=== PATIENT | male | born 1995 | race Caucasian/White ===

== ENCOUNTER 2021-11-07 12:33 | Emergency (ER) | payer MEDICAID, SELFPAY ==
[2021-11-07 12:46] VITALS: BP 136/79; PULSE 78; RESP 18; TEMP 36.8; O2SAT 93; BMI 42.7
--- NOTE | 2021-11-07 12:57 | XRR_ITS ---
PROCEDURE INFORMATION: Exam: XR Chest Exam date and time: 11/07/2021 12:57 PM Age: 26 years old Clinical indication: Cough TECHNIQUE: Imaging protocol: XR of the chest. Views: 1 view. COMPARISON: CR Chest 2 views* [id number] 09/26/2016 9:46 PM FINDINGS: Lungs: Unremarkable. No consolidation. Pleural spaces: Unremarkable. No pleural effusion. No pneumothorax. Heart/Mediastinum: Unremarkable. No cardiomegaly. Bones/joints: Unremarkable. XR/XR chest 1V portable [id number] IMPRESSION: No acute findings.
--- NOTE | 2021-11-07 12:57 | ECG_ITS ---
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
--- NOTE | 2021-11-07 13:18 | W.ED.URI ---
HPI - URI/Sore Throat General: Chief Complaint: General Medical Stated Complaint: COUGH, H/A, FAINTED THIS A.M. Time Seen by Provider: 11/07/21 13:07 Source: patient Mode of arrival: ambulatory Limitations: no limitations History of Present Illness: HPI Narrative: Patient is a 26-year-old male who presents to ED today with a main complaint of a cough over the past 3 to 4 days. He states cough is mainly nonproductive. He is not having any chest pain or shortness of breath. When asked he does report some nasal congestion and sinus pain. He has had diarrhea. No complaints of abdominal pain or vomiting. He reports earlier today he was coughing so hard that he passed out for a few seconds. No injuries related to the syncopal episode. Apart from this isolated incident he has no complaints of lightheadedness, dizziness, palpitations. Denies sick contacts. No fevers. Unvaccinated for COVID. MD elicited complaint: cough and nasal congestion Onset (ago): day(s) Consistency: constant Severity: moderate Able to tolerate fluids by mouth: Yes Exacerbating factors: nothing Relieving factors: nothing Associated symptoms: Reports diarrhea, nasal congestion and sinus pain; Deny abdominal pain, chills, chest pain, ear or mastoid pain, fever(s), headache(s), nausea or vomiting Treatments prior to arrival: none Review of Systems Const: Denies: fever(s), chills, body aches, fatigue or malaise Eyes: Denies: change in vision ENMT: Reports: nasal congestion and sinus pain; Denies: throat pain, odynophagia, ear or mastoid pain or nasal discharge Card: Reports: syncope (x 1 today); Denies: chest pain, palpitations, irregular heart rhythm, edema, swelling of feet/ankles, lightheadedness, pre-syncope, dyspnea on exertion, orthopnea or leg pain with exertion Resp: Reports: non-productive cough and chest congestion; Denies: hemoptysis GI: Reports: diarrhea; Denies: abdominal pain, nausea or vomiting Musc: Denies: neck pain, back pain, extremity pain or joint pain Skin/Breast: Denies: rash Neuro: Denies: headache(s), numbness in extremities, weakness in extremities, sensory changes, difficulty walking, dizziness, behavioral changes, Slurred speech present, difficulty communicating thoughts or seizure-like activity Physical Exam Const: COMMON NORMALS: no acute distress, patient oriented x3, no limitations and alert GENERAL APPEARANCE: cooperative NUTRITIONAL APPEARANCE: obese morbidly obese ORIENTATION/CONSCIOUSNESS: Yes awake, Yes oriented to person, Yes oriented to place and Yes oriented to time HENMT: COMMON NORMALS: normocephalic and atraumatic HEAD & SCALP: normocephalic and atraumatic Neck/C-Spine: CAROTIDS: No bruit Chest: COMMONS NORMALS: normal inspection of the chest and normal palpation of entire chest wall Resp: COMMON NORMALS: normal respiratory effort EFFORT & INSPECTION: Yes able to speak in complete sentences AUSCULTATION: wheezes (faint expiratory wheezes R upper lung field) Cardio: COMMON NORMALS: regular rate and regular rhythm RATE: regular rate RHYTHM: regular rhythm Extremity: COMMON NORMALS: no clubbing, cyanosis or edema, no calf tenderness and no pedal edema Neuro: COMMON NORMALS: patient oriented x3 SENSORIUM/ORIENTATION: Yes alert, Yes oriented to person, Yes oriented to place and Yes oriented to time Skin: COMMON NORMALS: no rashes or lesions noted GENERAL SKIN EXAM: no rashes or lesions noted Course Vital Signs: Vital signs: Vital Signs Temperature 98.2 F 11/07/21 12:46 Pulse Rate 78 11/07/21 12:46 Respiratory Rate 18 11/07/21 12:46 Blood Pressure 136/79 11/07/21 12:46 Pulse Oximetry 93 11/07/21 12:46 MDM - URI/Sore Throat MDM Narrative: Medical decision making narrative: Patient is a 26-year-old morbidly obese male here for complaints of a cough. He does complain of nasal congestion and sinus pain as well as diarrhea. He reported a syncopal episode following coughing. EKG is normal. CXR is normal. His vital signs are stable. He clinically appears in no acute distress. PCR COVID pending. Discussed quarantine precautions if this returns positive as well as return to ED precautions given for worsening symptoms. Otherwise I recommend follow-up with primary care in 3 to 5 days for reevaluation. Will place patient on albuterol inhaler and steroids at this time. There is no indication for antibiotics. Imaging Data^: CXR: Radiologist's impression: [address] [address] XRay Report Signed Patient: Janes Powell Unit #: [id number] : 1995 Age/Sex: 26 / M ADM Date: 11/07/21 Loc: ER Room/Bed: Attending Dr: Ordering Provider/Ordering MD: Donna Morales MD Date of Service: 11/07/21 Procedure(s): XR chest 1V portable [id number] Accession Number(s): [id number] Report Number: [id number] PROCEDURE INFORMATION: Exam: XR Chest Exam date and time: 11/07/2021 12:57 PM Age: 26 years old Clinical indication: Cough TECHNIQUE: Imaging protocol: XR of the chest. Views: 1 view. COMPARISON: CR Chest 2 views* [id number] 09/26/2016 9:46 PM FINDINGS: Lungs: Unremarkable. No consolidation. Pleural spaces: Unremarkable. No pleural effusion. No pneumothorax. Heart/Mediastinum: Unremarkable. No cardiomegaly. Bones/joints: Unremarkable. XR/XR chest 1V portable [id number] IMPRESSION: No acute findings. Dictated By: Roby Weinberg Signed By: Roby Weinberg Signed Date/Time: 11/07/21 1516 DD/ 1257 EKG Data^: EKG 1: EKG interpretation date: 11/07/21 EKG interpretation time: 13:39 Interpretation: Sinus rhythm Rate [address] elevation or depression changes noted Discharge Plan Discharge Patient Disposition: Home Clinical Impression: Viral upper respiratory tract infection with cough Condition: Stable Prescriptions: New albuterol sulfate 90 mcg/actuation HFA aerosol inhaler 2 inh INHALATION Q4H PRN (Reason: shortness of breath or wheezing) Qty: 6.7 RF: 0 dexamethasone 6 mg tablet 6 mg PO DAILY Qty: 6 RF: 0 Discharge Orders: Discharge ED (Routine); Ordered 11/07/21 Ordered By: Kaylan Young Referrals: Jacob Rowe MD [Primary Care Provider] - Patient Instructions: Upper Respiratory Infection (ED) Coding Level of Care Code ED Corporate Communications Specialist for Chg Fwd Exam Comprehensive
[2021-11-08 14:59] LABS: Coronavirus Test Green County Not Detected
== END 2021-11-07 14:50 | disposition home or self-care (01) ==
PROVIDERS: Emergency Provider Physician Assistant; PCP Family Medicine
DX: J06.9 Acute upper respiratory infection, unspecified (principal); Z20.822 Contact with and (suspected) exposure to COVID-19
CPT/HCPCS: 71045; 87635; 93005; 99283

== ENCOUNTER 2022-06-09 21:21 | Emergency (ER) | payer MEDICAID, SELFPAY ==
[2022-06-09 21:53] VITALS: BP 128/87; PULSE 93; RESP 17; TEMP 36.6; O2SAT 95; BMI 40.4
--- NOTE | 2022-06-10 02:48 | W.ED.GENADLT ---
HPI - General Adult General: Chief complaint: General Medical Stated complaint: SORE THROAT Time Seen by Provider: 06/10/22 02:21 History of Present Illness: 26-year-old male patient comes in today with bilateral tonsil swelling and exudate. Patient reports pain and discomfort. Patient also reports occasional fever. Patient appears mildly unwell but not toxic. Patient appears in mild pain. Review of Systems Const: Reports: fever(s) ENMT: Reports: throat pain Physical Exam Const: COMMON NORMALS: alert HENMT: THROAT: abnormal tonsil bilateral erythema and exudates Lymph: LYMPHATIC: lymphadenopathy Resp: COMMON NORMALS: normal respiratory effort and clear to auscultation bilaterally AUSCULTATION: clear to auscultation bilaterally Cardio: COMMON NORMALS: regular rate RATE: regular rate Extremity: COMMON NORMALS: normal to inspection Neuro: SENSORIUM/ORIENTATION: Yes alert Skin: COMMON NORMALS: no rashes or lesions noted GENERAL SKIN EXAM: no rashes or lesions noted Course Vital Signs: Vital signs: Vital Signs Temperature 97.9 F 06/09/22 21:53 Pulse Rate 93 06/09/22 21:53 Respiratory Rate 17 06/09/22 21:53 Blood Pressure 128/87 06/09/22 21:53 Pulse Oximetry 95 06/09/22 21:53 MDM - General Adult Medical Decision Making 26-year-old male patient comes in with sore throat and enlarged tonsils. On exam we note enlargement of bilateral tonsils with the right being worse than the left. Patient also has some significant exudate to bilateral tonsils. Vital signs are normal. Differential diagnosis includes strep pharyngitis, tonsillar abscess, viral syndrome. Patient is managing secretions well and airway is intact. No sign of any serious illness is noted at this time. We will go ahead and treat patient for exudative tonsillitis with concern for a mild tonsillar abscess with 10 mg of dexamethasone p.o. and clindamycin 450 mg 3 times a day. Reviewed this with patient who reported understanding agreed to plan. Discharge Plan Discharge Patient Disposition: Home Clinical Impression: Tonsillitis with exudate Condition: Stable Prescriptions: New clindamycin HCl 150 mg capsule 450 mg PO Q8H 7 Days Qty: 63 0RF No Action albuterol sulfate 90 mcg/actuation HFA aerosol inhaler 2 inh INHALATION Q4H PRN (Reason: shortness of breath or wheezing) Qty: 6.7 0RF dexamethasone 6 mg tablet 6 mg PO DAILY Qty: 6 0RF Discharge Orders: Discharge ED (Routine); Ordered 06/10/22 Ordered By: Hilario Cesar Referrals: Jacob Rowe MD [Primary Care Provider] - Discharge Diet: Usual diet Discharge Activity: Increase activity as tolerated Patient Instructions: Pharyngitis (ED) Activity Restrictions/Additional Instructions: Drink plenty of water. Use acetaminophen and ibuprofen for pain and discomfort. Take antibiotics clindamycin 450 mg, this will be 3 capsules of 150 mg clindamycin, 3 times a day for 7 days. Follow-up with primary care in 1 week. Return to ER for new concerns. Coding Level of Care Code ED [facility] Bailiff for Luzma Allan
[2022-06-10 02:51] LABS: Rapid Strep A Test Negative (Negative)
[2022-06-10] MEDS: clindamycin 150 mg Capsule 450 MG PO (02:56)
[2022-06-10] MEDS: dexamethasone 4 mg Tablet 10 MG PO (02:56)
== END 2022-06-10 03:02 | disposition home or self-care (01) ==
PROVIDERS: Emergency Provider Nurse Practitioner Family; PCP Family Medicine
DX: J03.90 Acute tonsillitis, unspecified (principal)
CPT/HCPCS: 87081; 87880; 99283; J8540

== ENCOUNTER 2022-08-12 18:59 | Emergency (ER) | payer MEDICAID, SELFPAY ==
[2022-08-12 19:05] VITALS: BP 135/78; PULSE 87; RESP 18; TEMP 37.1; O2SAT 98
--- NOTE | 2022-08-12 19:08 | XRR_ITS ---
PROCEDURE INFORMATION: Exam: XR Chest Exam date and time: 08/12/2022 7:22 PM Age: 27 years old Clinical indication: Chest wall pain; Additional info: Cp TECHNIQUE: Imaging protocol: Radiologic exam of the chest. Views: 1 view. COMPARISON: CR XR chest 1V portable [id number] 11/07/2021 1:59 PM FINDINGS: Lungs: Unremarkable. No consolidation. Pleural spaces: Unremarkable. No pleural effusion. No pneumothorax. Heart/Mediastinum: Unremarkable. No cardiomegaly. Bones/joints: Unremarkable. XR/XR chest 1V portable [id number] IMPRESSION: No acute findings.
--- NOTE | 2022-08-12 19:09 | ED_ITS ---
HPI - Chest Pain General: Chief Complaint: Chest Pain Stated Complaint: CHEST PAIN Time Seen by Provider: 08/12/22 19:02 Source: patient and EMS Mode of arrival: EMS Limitations: no limitations History of Present Illness: 27-year-old male who states that he has been having chest pain over the last 2 days he states been dull ache in the center of his chest. Denies any shortness of breath denies any cough denies any vomiting and denies any history of heart disease he denies any worsening proving factors states has been constantly dull. Associated symptoms: Deny abdominal pain, dyspnea, fever(s), nausea or vomiting Review of Systems Const: Denies: fever(s), chills, body aches or change in appetite Eyes: Denies: blurry vision or eye discomfort ENMT: Denies: throat pain or dental pain Card: Reports: chest pain Resp: Denies: dyspnea GI: Denies: abdominal pain, nausea, vomiting or diarrhea : Denies: dysuria Musc: Denies: neck pain or back pain Skin/Breast: Denies: rash Neuro: Denies: headache(s) Psych: Denies: depression Brett/Lymph: Denies: easy bruising All/Imm: Denies: urticaria PFSH ED PFSH: Medical History (Updated 08/12/22 @ 20:07 by Donna Morales MD) No pertinent past medical history Social History (Updated 08/12/22 @ 19:10 by Donna Morales MD) Smoking and tobacco status: current every day smoker Course Vital Signs: Vital signs: Vital Signs Temperature 98.7 F 08/12/22 19:05 Pulse Rate 87 08/12/22 19:05 Respiratory Rate 20 H 08/12/22 19:34 Blood Pressure 135/78 08/12/22 19:05 Pulse Oximetry 98 08/12/22 19:05 Oxygen Delivery Me thod 08/12/22 19:05 MDM - Chest Pain Medical Decision Making Patient presents for chest pains atypical in nature likely muscular he does have some tenderness his troponin EKG and x-ray are normal and his pain is been constant for 2 days he is stable for discharge he is to follow-up with PCP and return if worsening. Lab Data : 08/12/22 19:35 08/12/22 19:35 Radiology Impressions Chest X-Ray 08/12/22 19:08 IMPRESSION: No acute findings. Laboratory Results WBC 12.3 10^3/uL (4.0-10.0) H 08/12/22 19:35 RBC 5.55 10^6/uL (4.1-5.3) H 08/12/22 19:35 Hgb 14.8 g/dL (11.7-16.6) 08/12/22 19:35 Hct 47.1 % (42.0-52.0) 08/12/22 19:35 MCV 84.9 fl (80-94) 08/12/22 19:35 MCH 26.7 pg (28.0-34.0) L 08/12/22 19:35 MCHC 31.4 g/dL (30.0-36.0) 08/12/22 19:35 RDW 14.8 % (12.1-15.1) 08/12/22 19:35 Plt Count 390 10^3/cmm (130-400) 08/12/22 19:35 MPV 10.3 fL (7.4-10.4) 08/12/22 19:35 Neut % (Auto) 61.6 % 08/12/22 19:35 Lymph % (Auto) 30.7 % 08/12/22 19:35 [place] % (Auto) 5.9 % 08/12/22 19:35 Eos % (Auto) 1.3 % 08/12/22 19:35 Baso % (Auto) 0.3 % 08/12/22 19:35 Neut # (Auto) 7.59 10^3/uL (1.8-7.7) 08/12/22 19:35 Lymph # (Auto) 3.8 10^3/uL (0.8-4.8) 08/12/22 19:35 [place] # (Auto) 0.7 10^3/uL (0.2-0.9) 08/12/22 19:35 Eos # (Auto) 0.2 10^3/uL (0.0-0.8) 08/12/22 19:35 Baso # (Auto) 0.0 10^3/uL (0.0-0.1) 08/12/22 19:35 Nucleated RBC % (auto) 0 % 08/12/22 19:35 Nucleated RBCs # 0.0 /100WBC 08/12/22 19:35 Sodium 135 mmol/L (136-145) L 08/12/22 19:35 Potassium 4.0 mmol/L (3.5-5.1) 08/12/22 19:35 Chloride 99 mmol/L (98-107) 08/12/22 19:35 Carbon Dioxide 27 mmol/L (22-29) 08/12/22 19:35 Anion Gap 13.0 (5-19) 08/12/22 19:35 BUN 10 mg/dL (6-20) 08/12/22 19:35 Creatinine 0.8 mg/dL (0.7-1.2) 08/12/22 19:35 GFR Calculation 115.1 mL/min (90-130) 08/12/22 19:35 Glucose 103 mg/dL (65-115) 08/12/22 19:35 Calculated Osmolality 279 mOsm/kg (285-295) L 08/12/22 19:35 Calcium 9.5 mg/dL (8.5-10.5) 08/12/22 19:35 Total Bilirubin 0.2 mg/dL (0.15-1.2) 08/12/22 19:35 AST 12 U/L (0-40) 08/12/22 19:35 ALT 10 U/L (0-41) 08/12/22 19:35 Alkaline Phosphatase 108 U/L (40-130) 08/12/22 19:35 Troponin T Baseline 6 ng/L (0-15) 08/12/22 19:35 Total Protein 7.7 g/dL (6.6-8.7) 08/12/22 19:35 Albumin 3.8 g/dL (3.5-5.2) 08/12/22 19:35 Globulin 3.9 g/dL (1.3-4.6) 08/12/22 19:35 Lipase 36 U/L (13-60) 08/12/22 19:35 EKG Data EKG 1: I personally reviewed and interpreted this EKG as follows: EKG interpretation date: 08/12/22 EKG interpretation time: : Interpretation: nsr hr [address] or t wave abnormalities qrs 94 qtc 388 Discharge Plan Discharge Patient Disposition: Home Clinical Impression: Chest pain Qualifiers: Chest pain type: unspecified Qualified Code(s): R07.9 - Chest pain, unspecified Prescriptions: No Action albuterol sulfate 90 mcg/actuation HFA aerosol inhaler 2 inh INHALATION Q4H PRN (Reason: shortness of breath or wheezing) Qty: 6.7 0RF dexamethasone 6 mg tablet 6 mg PO DAILY Qty: 6 0RF Discharge Orders: Discharge ED (Routine); Ordered 08/12/22 Ordered By: Donna Morales Referrals: Jacob Rowe MD [Primary Care Provider] - Discharge Diet: Advance as tolerated Discharge Activity: Resume usual activity Patient Instructions: Chest Pain (ED) Coding Level of Care Code ED Clerical Office for Luzma Allan
--- NOTE | 2022-08-12 19:22 | ECG_ITS ---
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 Measurements Intervals [place] Rate: 87 P: -2 AL: 174 QRS: -11 QRSD: 94 T: 3 QT: 344 QTc: 414 Interpretive Statements SINUS RHYTHM Compared to ECG 11/07/2021 13:39:23 No significant changes Electronically Signed On 08-13-2022 11:07:42 CDT by Sharri Juan M.D. [id number]
[2022-08-12 19:34] VITALS: RESP 20
[2022-08-12] MEDS: HYDROmorphone 1 mg/mL INJ 1 mL IVP (19:34)
[2022-08-12] MEDS: ondansetron 2 mg/ML SDV 2 mL 4 MG IVP (19:37)
[2022-08-12 19:43] LABS: Basophils % 0.3 %; Eosinophils # 0.2 10^3/uL (0.0-0.8); Eosinophils % 1.3 %; Hematocrit 47.1 % (42.0-52.0); Hemoglobin 14.8 g/dL (11.7-16.6); Lymphocytes # 3.8 10^3/uL (0.8-4.8); Lymphocytes % 30.7 %; Mean Corpuscular HGB Conc 31.4 g/dL (30.0-36.0); Mean Corpuscular Hemoglobin 26.7 pg (28.0-34.0); Mean Corpuscular Volume 84.9 fl (80-94); Mean Platelet Volume 10.3 fL (7.4-10.4); Monocytes # 0.7 10^3/uL (0.2-0.9); Monocytes % 5.9 %; Neutrophils # 7.59 10^3/uL (1.8-7.7); Neutrophils % 61.6 %; Nucleated Red Blood Cells % 0 %; Platelet Count 390 10^3/cmm (130-400); Red Blood Count 5.55 10^6/uL (4.1-5.3); Red Cell Distribution Width 14.8 % (12.1-15.1); White Blood Count 12.3 10^3/uL (4.0-10.0)
[2022-08-12 20:04] LABS: Alanine Aminotransferase 10 U/L (0-41); Albumin Level 3.8 g/dL (3.5-5.2); Alkaline Phosphatase 108 U/L (40-130); Aspartate Amino Transferase 12 U/L (0-40); Blood Urea Nitrogen 10 mg/dL (6-20); Calcium 9.5 mg/dL (8.5-10.5); Carbon Dioxide 27 mmol/L (22-29); Chloride 99 mmol/L (98-107); Globulin 3.9 g/dL (1.3-4.6); Glomerular Filtration Rate 115.1 mL/min (90-130); Glucose 103 mg/dL (65-115); Lipase 36 U/L (13-60); Osmolality Calculated 279 mOsm/kg (285-295); Sodium 135 mmol/L (136-145); Total Bilirubin 0.2 mg/dL (0.15-1.2); Total Protein 7.7 g/dL (6.6-8.7)
[2022-08-12 20:06] LABS: Troponin(5th) Baseline 6 ng/L (0-15)
[2022-08-12 20:20] VITALS: BP 109/71; PULSE 87; RESP 14; O2SAT 95
== END 2022-08-12 20:15 | disposition home or self-care (01) ==
PROVIDERS: Emergency Provider Emergency Medicine; PCP Family Medicine
DX: R07.9 Chest pain, unspecified (principal); F17.200 Nicotine dependence, unspecified, uncomplicated
CPT/HCPCS: 71045; 80053; 83690; 84484; 85025; 93005; 96374; 96375; 99285; J1170; J2405

== ENCOUNTER 2022-08-14 00:28 | Emergency (ER) | payer MEDICAID, SELFPAY ==
[2022-08-14 00:29] VITALS: BP 136/80; PULSE 80; RESP 18; TEMP 36.6; O2SAT 96
--- NOTE | 2022-08-14 00:31 | ED.C_ITS ---
HPI - Psych General: Chief Complaint: Psychiatric Symptoms Stated Complaint: DEPRESSION Time Seen by Provider: 08/14/22 00:29 Source: patient and EMS Mode of arrival: EMS Limitations: no limitations History of Present Illness: 27-year-old male states that he has chronic depression he states he supposed to get an Invega injection weekly states its been a month since he has had it he states that he did call EMS tonight because he needs his Invega he is having some increased depression. He denies any suicidal or homicidal ideations he states he has no plan or thoughts of killing himself. Denies any worsening improving factors. Associated symptoms: Reports depression Review of Systems Const: Denies: fever(s), chills, body aches or change in appetite Eyes: Denies: blurry vision or eye discomfort ENMT: Denies: throat pain or dental pain Card: Denies: chest pain Resp: Denies: dyspnea GI: Denies: abdominal pain, nausea, vomiting or diarrhea : Denies: dysuria Musc: Denies: neck pain or back pain Skin/Breast: Denies: rash Neuro: Denies: headache(s) Psych: Reports: depression Brett/Lymph: Denies: easy bruising All/Imm: Denies: urticaria PFSH ED PFSH: Medical History No pertinent past medical history Social History Smoking and tobacco status: current every day smoker Physical Exam Const: COMMON NORMALS: no acute distress, patient oriented x3 and healthy appearing HENMT: COMMON NORMALS: normocephalic and atraumatic HEAD & SCALP: normocephalic and atraumatic Eye: COMMON NORMALS: Equal, round and reactive pupils present and EOMs intact bilaterally PUPIL: Yes Equal, round and reactive pupils present Neck/C-Spine: COMMON NORMALS: full ROM and supple Chest: COMMONS NORMALS: normal inspection of the chest and normal palpation of entire chest wall Resp: COMMON NORMALS: normal respiratory effort, No retractions, No use of accessory muscles and clear to auscultation bilaterally AUSCULTATION: clear to auscultation bilaterally Cardio: COMMON NORMALS: regular rate, regular rhythm and No murmurs present (Cardio) RATE: regular rate RHYTHM: regular rhythm GI: COMMON NORMALS: Normal to inspection, nondistended, normoactive bowel sounds present, Soft to palpation, non-tender and no masses PALPATION: Yes Soft to palpation Extremity: COMMON NORMALS: normal to inspection and full ROM Neuro: COMMON NORMALS: patient oriented x3, moves all extremities and no focal motor deficits Psych: COMMON NORMALS: mental status grossly normal, Normal thought process present and cooperative THOUGHT PROCESS: Normal thought process present Skin: COMMON NORMALS: no rashes or lesions noted and no wounds GENERAL SKIN EXAM: no rashes or lesions noted Course Vital Signs: Vital signs: Vital Signs Temperature 97.8 F 08/14/22 00:29 Pulse Rate 80 08/14/22 00:29 Respiratory Rate 18 08/14/22 00:29 Blood Pressure 136/80 08/14/22 00:29 Pulse Oximetry 96 08/14/22 00:29 [facility] - Psych Medical Decision Making Patient presents here with depression he is not suicidal homicidal he has not had his Invega in over a month. Informed him I was not able to give him an Invega here he states that he would take a Geodon and will get his Invega outpatient he is not suicidal I did offer him admission to the psych herr again and he refused he stable for discharge at this time return if worsening.. Discharge Plan Discharge Patient Disposition: Home Clinical Impression: Depression Condition: Stable Prescriptions: No Action albuterol sulfate 90 mcg/actuation HFA aerosol inhaler 2 inh INHALATION Q4H PRN (Reason: shortness of breath or wheezing) Qty: 6.7 0RF dexamethasone 6 mg tablet 6 mg PO DAILY Qty: 6 0RF Discharge Orders: Discharge ED (Routine); Ordered 08/14/22 Ordered By: Donna Morales Referrals: Jacob Rowe MD [Primary Care Provider] - 1-3 days Discharge Diet: Advance as tolerated Discharge Activity: Resume usual activity Patient Instructions: Depression (ED) Coding Level of Care Code ED Extracorporeal Technician for Rhondag Fwd Exam Comprehensive
--- NOTE | 2022-08-14 00:34 | PC.NURSE ---
During triage pt. states that he has not had his invega this month. Pt. states the reason for the lack of medication is not seeing his doctor for new prescription.
[2022-08-14] MEDS: ziprasidone hcl 40 mg Capsule PO (01:09)
--- NOTE | 2022-09-03 02:16 | W.ED.PSYCHS ---
HPI - Psych General: Chief Complaint: Psychiatric Symptoms Stated Complaint: DEPRESSION Time Seen by Provider: 08/14/22 00:29 Source: patient and EMS Mode of arrival: EMS History of Present Illness: . PFSH ED PFSH: Medical History No pertinent past medical history Social History Smoking and tobacco status: current every day smoker Physical Exam Const: COMMON NORMALS: no acute distress, patient oriented x3 and healthy appearing HENMT: COMMON NORMALS: normocephalic and atraumatic HEAD & SCALP: normocephalic and atraumatic Eye: COMMON NORMALS: Equal, round and reactive pupils present and EOMs intact bilaterally PUPIL: Yes Equal, round and reactive pupils present Neck/C-Spine: COMMON NORMALS: full ROM and supple Chest: COMMONS NORMALS: normal inspection of the chest and normal palpation of entire chest wall Resp: COMMON NORMALS: normal respiratory effort, No retractions, No use of accessory muscles and clear to auscultation bilaterally AUSCULTATION: clear to auscultation bilaterally Cardio: COMMON NORMALS: regular rate, regular rhythm and No murmurs present (Cardio) RATE: regular rate RHYTHM: regular rhythm GI: COMMON NORMALS: Normal to inspection, nondistended, normoactive bowel sounds present, Soft to palpation, non-tender and no masses PALPATION: Yes Soft to palpation Extremity: COMMON NORMALS: normal to inspection and full ROM Neuro: COMMON NORMALS: patient oriented x3, moves all extremities and no focal motor deficits Psych: COMMON NORMALS: mental status grossly normal, Normal thought process present and cooperative THOUGHT PROCESS: Normal thought process present Skin: COMMON NORMALS: no rashes or lesions noted and no wounds GENERAL SKIN EXAM: no rashes or lesions noted Course Vital Signs: Vital signs: Vital Signs Temperature 97.8 F 08/14/22 00:29 Pulse Rate 80 08/14/22 00:29 Respiratory Rate 18 08/14/22 00:29 Blood Pressure 136/80 08/14/22 00:29 Pulse Oximetry 96 08/14/22 00:29 MDM - Psych Medical Decision Making addendum to note on 08/12 including physical exam that was omitted Discharge Plan Discharge Patient Disposition: Home Clinical Impression: Chest pain Condition: Stable Prescriptions: No Action albuterol sulfate 90 mcg/actuation HFA aerosol inhaler 2 inh INHALATION Q4H PRN (Reason: shortness of breath or wheezing) Qty: 6.7 0RF dexamethasone 6 mg tablet 6 mg PO DAILY Qty: 6 0RF Discharge Orders: Discharge ED (Routine); Ordered 08/14/22 Ordered By: Donna Morales Referrals: Jacob Rowe MD [Primary Care Provider] - 1-3 days Discharge Diet: Advance as tolerated Discharge Activity: Resume usual activity Coding Level of Care Code ED Pilot Control Operator for Luzma Allan
== END 2022-08-14 01:27 | disposition home or self-care (01) ==
LOC: ER 00:52
PROVIDERS: Emergency Provider Emergency Medicine; PCP Family Medicine
DX: F32.A Depression, unspecified (principal); F17.200 Nicotine dependence, unspecified, uncomplicated
CPT/HCPCS: 99283

== ENCOUNTER 2022-10-23 17:04 | Emergency (ER) | payer MEDICAID, SELFPAY ==
[2022-10-23 17:28] VITALS: BP 129/84; PULSE 88; RESP 16; TEMP 37; O2SAT 98
--- NOTE | 2022-10-23 17:56 | W.ED.WOUNDLC ---
HPI - Wound/Laceration General: Chief Complaint: Wound/Laceration Stated Complaint: LEFT HAND 5TH DIGIT LAC Time Seen by Provider: 10/23/22 17:56 History of Present Illness: 27-year-old male patient comes in today for injury to the left hand middle finger. Patient was working on his computer when he cut it against a sharp piece of metal. Patient reports that his immunizations are up-to-date. Patient has a superficial laceration to the distal dorsal little finger on the left hand. It is approximately 1-1/2 cm. Associated symptoms: Denies fever(s) Review of Systems Const: Denies: fever(s) Card: Denies: chest pain Resp: Denies: dyspnea Skin/Breast: Reports: new lesions [facility] ED PFSH: Medical History No pertinent past medical history Social History Smoking and tobacco status: current every day smoker Physical Exam Const: COMMON NORMALS: alert HENMT: COMMON NORMALS: atraumatic HEAD & SCALP: atraumatic Neck/C-Spine: COMMON NORMALS: full ROM Resp: COMMON NORMALS: normal respiratory effort Cardio: COMMON NORMALS: regular rate RATE: regular rate Extremity: LEFT UPPER EXTREMITY: Yes hand & digits (1-1/2 cm laceration to the dorsal little finger) Left hand and digits: Yes inspection, Yes palpation and Yes ROM Neuro: SENSORIUM/ORIENTATION: Yes alert Skin: TRAUMA: laceration (1-1/2 cm dorsal little finger left hand) flap Procedures Laceration Laceration 1: Site: hand Side (If applicable): left Size (cm): 1.5 Description: flap Depth: simple, single layer Local Anesthetic: lidocaine 1% and with epi Amount of anesthesia used (mL): 1 Pre-repair: wound explored and irrigated extensively Skin layer closed with: nylon Size (cm): 5-0 Number of sutures: 2 Technique: simple, interrupted and horizontal mattress Course Vital Signs: Vital signs: Vital Signs Temperature 98.6 F 10/23/22 17:28 Pulse Rate 88 10/23/22 17:28 Respiratory Rate 16 10/23/22 17:28 Blood Pressure 129/84 10/23/22 17:28 Pulse Oximetry 98 10/23/22 17:28 MDM - Wound/Laceration Medical Decision Making Patient comes in today for injury to the left little finger. On exam there is a superficial laceration to the dorsal aspect of the distal left little finger that is approximate 1 and half centimeter. Laceration appears to be a flap. No tendon injury is noted. Differential diagnosis includes foreign body, laceration, fracture. No sign of fracture or tendon injury is noted. Wound was repaired with 2 stitches. Patient tolerated well. Wound was placed in a clean dry dressing with a aluminum digital splint. Patient was recommended to follow-up with primary care in 1 week. Return to ER for new concerns. Patient stated understanding and agreed to plan. Tetanus shot was up-to-date. Discharge Plan Discharge Patient Disposition: Home Clinical Impression: Finger laceration Qualifiers: Encounter type: initial encounter Finger: little finger Damage to nail status: without damage Foreign body presence: without foreign body Laterality: left Qualified Code(s): S61.217A - Laceration without foreign body of left little finger without damage to nail, initial encounter Condition: Stable Prescriptions: No Action albuterol sulfate 90 mcg/actuation HFA aerosol inhaler 2 inh INHALATION Q4H PRN (Reason: shortness of breath or wheezing) Qty: 6.7 0RF dexamethasone 6 mg tablet 6 mg PO DAILY Qty: 6 0RF Discharge Orders: Discharge ED (Routine); Ordered 10/23/22 Ordered By: Hilario Cesar Referrals: Jacob Rowe MD [Primary Care Provider] - Discharge Diet: Usual diet Discharge Activity: Increase activity as tolerated Patient Instructions: Finger Laceration (ED) Activity Restrictions/Additional Instructions: Keep wound clean and dry. It is important keep the wound as dry as possible for the next 48 hours. After that you can gently wash the wound with mild soap and water and cover with a Band-Aid. Make sure wound is thoroughly dried before covering. Follow-up with primary care in 1 week for recheck. Sutures out in 7 days. Change dressing daily. Wear finger splint for protection of wound. Coding Level of Care Code ED Senior Mobile Solutions Architect for Luzma Allan
[2022-10-23 18:49] VITALS: PULSE 90; RESP 16; O2SAT 95
--- NOTE | 2022-10-23 18:49 | PC.NURSE ---
PROVIDER BILL PLACED BANDAGE ON PT AND APPLIED FINGER SPLINT.
== END 2022-10-23 18:50 | disposition home or self-care (01) ==
PROVIDERS: Emergency Provider Nurse Practitioner Family; PCP Family Medicine
DX: S61.217A Laceration without foreign body of left little finger without damage to nail, initial encounter (principal); W26.8XXA Contact with other sharp object(s), not elsewhere classified, initial encounter
CPT/HCPCS: 12001; 99283

== ENCOUNTER 2022-12-13 16:26 | Emergency (ER) | payer MEDICAID, SELFPAY ==
[2022-12-13 16:31] VITALS: PULSE 81; RESP 19; TEMP 36.7; O2SAT 98; BMI 38.5
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
[2022-12-13] MEDS: hyDROXYzine 25 mg Capsule 50 MG PO (17:01)
[2022-12-13 17:02] VITALS: RESP 18; O2SAT 97
== END 2022-12-13 17:04 | disposition home or self-care (01) ==
PROVIDERS: Emergency Provider Physician Assistant; PCP Family Medicine
DX: F41.9 Anxiety disorder, unspecified (principal); Z59.00 Homelessness unspecified; F17.210 Nicotine dependence, cigarettes, uncomplicated
CPT/HCPCS: 99283

== ENCOUNTER 2023-01-04 15:35 | Emergency (ER) | payer MEDICAID, SELFPAY ==
--- NOTE | 2023-01-04 15:37 | ED_ITS ---
HPI - Anxiety General: Chief Complaint: Anxiety Stated Complaint: anxiety Time Seen by Provider: 01/04/23 15:36 History of Present Illness: Mr Powell is a 27-year-old gentleman with history of psychiatric disorder presenting to the emergency department for anxiety and panic attack. He reports consuming approximately 600 mg of caffeine since about noon and developed palpitations and anxious feeling. He reports that he felt tired and that is why he drank them. He previously tolerated more without difficulty however weighed more at that time. Intensity symptoms is moderate. Course has continued. Denies suicidal or homicidal ideation. Denies other ingestion. No other specific changes in health, exacerbating, or alleviating factors identified. Onset (ago): hour(s) Symptoms: palpitations, extremity numbness/tingling and other Severity: moderate Place: home History of similar episodes: Yes Provoking factors: other Relieving factors: nothing Exacerbating factors: nothing Review of Systems General: Reports: 10 or more systems reviewed and unremarkable except in HPI and below PFSH ED PFSH: Medical History No pertinent family history No pertinent past medical history Social History Smoking and tobacco status: current every day smoker Physical Exam Const: COMMON NORMALS: alert GENERAL APPEARANCE: cooperative and well developed HENMT: COMMON NORMALS: normocephalic and atraumatic HEAD & SCALP: normocephalic and atraumatic THROAT: posterior oropharynx normal Eye: COMMON NORMALS: conjunctivae normal CONJUNCTIVA: Yes conjunctivae normal SCLERA: sclerae normal Neck/C-Spine: COMMON NORMALS: supple GENERAL: Yes trachea midline Resp: COMMON NORMALS: clear to auscultation bilaterally EFFORT & INSPECTION: Yes able to speak in complete sentences AUSCULTATION: clear to auscultation bilaterally Cardio: COMMON NORMALS: regular rate and regular rhythm RATE: regular rate RHYTHM: regular rhythm GI: COMMON NORMALS: Soft to palpation PALPATION: Yes Soft to palpation and No Tenderness to palpation present (GI) Extremity: GENERAL: Yes normal exam except as noted and No edema Neuro: COMMON NORMALS: moves all extremities SENSORIUM/ORIENTATION: Yes alert and No Orientation impaired Psych: COMMON NORMALS: mental status grossly normal and Normal thought process present THOUGHT PROCESS: Normal thought process present Course Vital Signs: Vital signs: Vital Signs Pulse Rate 95 01/04/23 15:42 Respiratory Rate 18 01/04/23 15:42 Blood Pressure 141/89 01/04/23 15:42 Pulse Oximetry 95 01/04/23 15:42 Oxygen Delivery Me thod 01/04/23 15:42 MDM - Anxiety Medical Decision Making 27-year-old gentleman presenting due to anxiety context of significant caffeine intake. Exam as above. EKG notable for sinus rhythm with nonspecific ST segment allergies, normal axis. No STEMI. Chest x-ray with no lobar consolidation pneumothorax Patient improved with hydroxyzine. Most likely etiology of symptoms is Exacerbated underlying anxiety disorder. Given clinical exam, history, and improvement I do not feel that further ED evaluation is required I will prescribe hydroxyzine. I encouraged the patient to follow-up with psychiatric department reinitiate his medications. The results of ED evaluation were discussed with the patient including prescriptions and/or symptomatic cares (if applicable) including appropriate and responsible use, followup plan, and return precautions. The patient verbalized understanding and felt safe for discharge. Medical Records I reviewed the patient's medical records. Lab Data I reviewed the patient's lab results. Radiology Impressions Chest X-Ray 01/04/23 16:03 IMPRESSION: No acute findings. Discharge Plan Discharge Patient Disposition: Home Clinical Impression: Acute anxiety, Adverse effect of caffeine, initial encounter Condition: Stable Prescriptions: New hydroxyzine HCl 25 mg tablet 25 mg PO Q8H PRN (Reason: anxiety) Qty: 60 0RF Discharge Orders: Discharge ED (Routine); Ordered 01/04/23 Ordered By: Rasta Bowman Referrals: Jacob Rowe MD [Primary Care Provider] - Discharge Diet: Usual diet Discharge Activity: Increase activity as tolerated Patient Instructions: Anxiety (ED), Caffeine Overdose Activity Restrictions/Additional Instructions: Thank you for visiting the emergency department. You were seen and evaluated for anxiety. The exact cause your symptoms is unclear though may be secondary to underlying anxiety disorder or caffeine adverse effect. Please limit caffeine intake. Please follow-up with a primary care provider. Return to the emergency department for uncontrolled symptoms or anything else that you are concerned about and feel needs emergency department evaluation. [facility] [phone] If you or someone you care for is experiencing a psychiatric emergency, please call the crisis hotline ([facility]) 24-hours a day, 7 days a week at [phone]. There is a walk-in crisis stabilization unit on the [address] side of the hospital campus open from 11 AM to 9 PM daily. Coding Level of Care Code ED Brick Extruder Operator for Luzma Allan
[2023-01-04 15:42] VITALS: BP 141/89; PULSE 95; RESP 18; O2SAT 95; BMI 47.5
--- NOTE | 2023-01-04 16:03 | XRR_ITS ---
PROCEDURE INFORMATION: Exam: XR Chest Exam date and time: 01/04/2023 4:14 PM Age: 27 years old Clinical indication: Other: Palpatations TECHNIQUE: Imaging protocol: Radiologic exam of the chest. Views: 1 view. COMPARISON: CR XR chest 1V portable [id number] 08/12/2022 7:22 PM FINDINGS: Lungs: Unremarkable. No consolidation. Pleural spaces: Unremarkable. No pleural effusion. No pneumothorax. Heart/Mediastinum: Unremarkable. No cardiomegaly. Bones/joints: Unremarkable. XR/XR chest 1V portable [id number] IMPRESSION: No acute findings.
--- NOTE | 2023-01-04 16:03 | ECG_ITS ---
[facility] Test Date: 2023-01-04 Pat Name: Janes Powell Department: Room: Gender: Male Information Technology Manager: : 1995 Requested By: Rasta Bowman Order Number: [id number] Virgil MD: Sharri Juan M.D. Measurements Intervals [place] Rate: 87 P: 52 UT: 198 QRS: 14 QRSD: 106 T: 24 QT: 363 QTc: 439 Interpretive Statements SINUS RHYTHM Compared to ECG 08/12/2022 19:22:36 No significant changes Electronically Signed On 01-04-2023 21:02:02 REAL ESTATE AGENT/BROKER by Sharri Juan M.D. [email or web address]
[2023-01-04] MEDS: hyDROXYzine 25 mg Capsule PO (16:16)
--- NOTE | 2023-01-04 16:20 | PC.PHAR ---
pt states take no rx or otc medications-pt states no longer uses inhalers-states not taken meds in around a year
== END 2023-01-04 17:28 | disposition home or self-care (01) ==
PROVIDERS: Emergency Provider Emergency Medicine; PCP Family Medicine
DX: F41.9 Anxiety disorder, unspecified (principal); T43.615A Adverse effect of caffeine, initial encounter
CPT/HCPCS: 71045; 93005; 99284

== ENCOUNTER 2023-06-07 01:33 | Emergency (ER) | payer MEDICAID, SELFPAY | END 2023-06-07 01:41 | disposition left against medical advice (07) | LOC: ER 02:01 | PROVIDERS: Emergency Provider Family Medicine; PCP Family Medicine | DX: Z53.21 Procedure and treatment not carried out due to patient leaving prior to being seen by health care provider (principal) | CPT/HCPCS: 99283 ==

== ENCOUNTER 2023-12-22 14:03 | Emergency (ER) | payer MEDICAID, SELFPAY ==
[2023-12-22 14:04] VITALS: BP 116/67; PULSE 76; RESP 18; TEMP 36.8; O2SAT 96; BMI 38.5
--- NOTE | 2023-12-22 14:07 | W.ED.PSYCHS ---
HPI - Psych General: Chief Complaint: Psychiatric Symptoms Stated Complaint: psych eval Time Seen by Provider: 12/22/23 14:07 History of Present Illness: 28-year-old male presents to the emergency department after drinking 1/5 of alcohol today. He states he has been at home with his mother who is also drinking and he has been arguing with her. He presents via EMS after some people that he was communicating with online called EMS. He states that he has no intent of self-harm or harming anyone else. He states he is not taking any medications and has not taken any medications to harm himself. He does appear to be very cooperative and is not causing any difficulties. Review of Systems General: Reports: 10 or more systems reviewed and unremarkable except in HPI and below Psych: Reports: other (alcohol ingestion) [facility] ED PFSH: Medical History No pertinent family history No pertinent past medical history Social History Smoking and tobacco/nicotine status: current every day tobacco/nicotine user Physical Exam Narrative: EXAM NARRATIVE: Constitutional: the patient appears well nourished and of normal development. Vital signs as documented. No acute distress at present. Alert and oriented-to person, place, time and situation. Head, eyes, ears, nose, mouth, throat: Normocephalic, atraumatic. Pupils-equal, round, reactive to light. No scleral icterus. Normal-appearing external ears. Normal appearing nasal turbinates, no drainage. No obvious oral lesions, posterior oropharynx without erythema or exudates. Neck: Supple, trachea is midline, no lymphadenopathy, no jugular venous distension, thyromegaly, or carotid bruits. Carotid upstrokes are brisk bilaterally. Lungs: clear to auscultation to all lung storm. Symmetrical rise and fall of chest, no obvious signs of increased work of breathing at present. Cardiac: Regular rate and rhythm, positive S1, S2. No murmurs, rubs or gallops that I can appreciate Abdomen: Soft, non-tender to palpation, normal active bowel sounds to all quadrants. No palpable masses, no organomegaly and abdominal bruits. Extremities: 2+ pulses in the upper extremities that are equal bilaterally, 2+ pulses in the lower extremities that are equal bilaterally. Non-edematous. Moves all extremities well, sensation to all extremities are noted. Skin: Warm, dry, intact. Course Vital Signs: Vital signs: Vital Signs Temperature 98.2 F 12/22/23 14:04 Pulse Rate 76 12/22/23 14:04 Respiratory Rate 18 12/22/23 14:04 Blood Pressure 116/67 12/22/23 14:04 Pulse Oximetry 96 12/22/23 14:04 Oxygen Delivery Me thod Room Air 12/22/23 14:04 MDM - Psych Medical Decision Making Physical exam completed and documented I did contact Dr. Roth the psychiatrist to discuss the patient's presentation there is no alternate explanation for the patient presenting to the emergency department he has been extremely cooperative and states he is not wanting to harm himself or anyone else and that he has not ingested any medications or anything that could cause him harm. He states that he would gladly call the crisis center if needed and feels that he does not need it right now he states that he only came to the emergency department because the ambulance crew told him he needed to be evaluated. At this time given the discussion and lack of physical exam findings here in the emergency department I do not feel that there is any lethality at present and the patient has agreed to a safety contract that if he has any feelings of anger or self-harm that he would call the crisis center. He states and agrees to not drink any further alcohol today also. Medical Records I reviewed the patient's medical records. No radiology studies performed this visit Discharge Plan Discharge Patient Disposition: Home Clinical Impression: Alcohol ingestion Condition: Stable Prescriptions: No Action No Known Home Medications Discharge Orders: Discharge ED (Routine); Ordered 12/22/23 Ordered By: Bernard Cazares Referrals: Jacob Rowe MD [Primary Care Provider] - Discharge Diet: Advance as tolerated Discharge Activity: Resume usual activity Patient Instructions: Opioid Safety, Pain Management Activity Restrictions/Additional Instructions: Activity Restrictions/Additional Instructions: Thank you [facility] for your healthcare needs today. Please realize that you were seen in the Emergency Department and that we are providing you with an emergency medical screening exam and this may not be a complete and all inclusive of all the testing and or medical work-up that you may need to determine your ailment or severity of your illness. It is very important that you follow-up as instructed with your Primary care provider or Specialist for additional evaluation and to discuss your medical treatment plan. You may return to the Emergency Department should you have concerns or if your condition changes or worsens in any way. Coding Level of Care Code ED Scrap Baller for Luzma Allan
--- NOTE | 2023-12-22 14:17 | PC.PHAR ---
pt states takes no prescription or otc medications-pt states hasnt taken meds for 4 years-states his medicaid from [place] isnt accepted here-
[2023-12-22 14:48] LABS: Add Urine Microscopic? NO; Charge for UA Resulting for Rev
[2023-12-22 14:52] LABS: Bilirubin Urine Neg (Negative); Blood Urine Neg (Negative); Glucose Urine UA Norm (Normal); Ketones Urine Negative (Negative); Leukocyte Esterase Urine Negative (Negative); Nitrate Urine Negative (Negative); Protein Urine Neg (Negative); Urine Appearance Clear (CLEAR); Urine Color Yellow (Yellow); Urobilinogen Urine Norm (Negative); pH Urine 5 (5-7)
[2023-12-22 15:01] LABS: Amphetamines Screen Urine Negative (Negative); Barbiturates Screen Urine Negative (Negative); Benzodiazepines Screen Urine Negative (Negative); Cocaine Screen Urine Negative (Negative); Opiate Screen Urine Negative (Negative); PCP Screen Urine Negative (Negative); THC Screen Urine Negative (Negative)
== END 2023-12-22 15:02 | disposition home or self-care (01) ==
PROVIDERS: Emergency Provider Internal Medicine; PCP Family Medicine
DX: F10.129 Alcohol abuse with intoxication, unspecified (principal); Z72.0 Tobacco use
CPT/HCPCS: 80306; 81003; 99283

== ENCOUNTER 2024-02-11 23:32 | Emergency (ER) | payer MEDICAID, SELFPAY ==
[2024-02-11 23:34] VITALS: BP 114/70; PULSE 91; RESP 16; TEMP 36.9; O2SAT 92; BMI 44.9
--- NOTE | 2024-02-11 23:42 | ED.C_ITS ---
HPI - Psych General: Chief Complaint: Psychiatric Symptoms Stated Complaint: MHE Time Seen by Provider: 02/11/24 23:41 History of Present Illness: 28-year-old male patient comes in today for out of medication. Patient is recently moved back to to [place] from [place] and is awaiting to reestablish his Medicaid. Patient reports some increased anxiety and symptoms of his schizophrenia. Patient is looking for a dose of his paliperidone injection in order to time over until he can reestablish care. Patient denies suicidality. Patient denies homicidal intent. Patient is cooperative. Patient denies hallucinations. Review of Systems General: Reports: 10 or more systems reviewed and unremarkable except in HPI and below PFSH ED PFSH: Medical History No pertinent family history No pertinent past medical history Social History Smoking and tobacco/nicotine status: current every day tobacco/nicotine user Physical Exam Const: COMMON NORMALS: alert HENMT: COMMON NORMALS: normocephalic HEAD & SCALP: normocephalic Neck/C-Spine: COMMON NORMALS: full ROM Resp: COMMON NORMALS: normal respiratory effort and clear to auscultation bilaterally AUSCULTATION: clear to auscultation bilaterally Cardio: COMMON NORMALS: regular rate RATE: regular rate Back/Pelvis: COMMON NORMALS: thoracic and lumbar spine normal to inspection Extremity: COMMON NORMALS: normal to inspection Neuro: SENSORIUM/ORIENTATION: Yes alert Psych: COMMON NORMALS: Normal thought process present, cooperative and speech normal APPEARANCE: Yes bizarre ATTITUDE: Yes calm ACTIVITY/MOTOR BEHAVIOR: Yes appropriate eye contact SPEECH: Yes normal speech MOOD & AFFECT: Yes euthymic mood THOUGHT PROCESS: Normal thought process present THOUGHT CONTENT: Yes Normal thought content present INSIGHT: Good insight present (Psych) JUDGEMENT: Good judgement present (Psych) Skin: COMMON NORMALS: turgor normal GENERAL SKIN EXAM: turgor normal Course Vital Signs: Vital signs: Vital Signs Temperature 98.4 F 02/11/24 23:34 Pulse Rate 91 02/11/24 23:34 Respiratory Rate 16 02/11/24 23:34 Blood Pressure 114/70 02/11/24 23:34 Pulse Oximetry 92 02/11/24 23:34 Oxygen Delivery Me thod Room Air 02/11/24 23:34 MDM - Psych Medical Decision Making Patient came in tonight wanting to get an injection of paliperidone for his chronic schizophrenia. Patient denies any suicidal homicidal thoughts. Patient denies any hallucinations. Patient is cooperative and acting appropriate. Differential diagnosis includes not limited to acute psychosis, chronic schizophrenia, major depressive disorder, suicidal ideation. I attempted to get patient his Invega injection. We did not have the availability of the medication at this time. I recommend patient return tomorrow when the medication may be given. I did offer medication for anxiety and other atypical antipsychotics to help with his symptoms. Patient reports that he was feeling better just sitting here at this time and wanted to wait until he can get his injection. I placed a case management request to help with [facility] follow-up. Patient reports understanding of plan and agrees. No radiology studies performed this visit Discharge Plan Discharge Patient Disposition: Home Clinical Impression: Chronic schizophrenia, Has run out of medications Condition: Stable Prescriptions: No Action No Known Home Medications Discharge Orders: Discharge ED (Routine); Ordered 02/12/24 Ordered By: Hilario Cesar Referrals: Jacob Rowe MD [Primary Care Provider] - Discharge Diet: Usual diet Discharge Activity: Increase activity as tolerated Patient Instructions: Schizophrenia (ED) Activity Restrictions/Additional Instructions: Follow-up tomorrow for Invega injection. Return to ER as needed for worsening symptoms. Coding Level of Care Code ED Combiner Operator for Luzma Allan
[2024-02-12 00:27] VITALS: BP 141/90; PULSE 88; RESP 16; O2SAT 92
[2024-02-12 01:02] VITALS: BP 141/80
--- NOTE | 2024-02-12 07:17 | DCPLANNER ---
Message sent to [facility] urgent follow up Follow-up tomorrow for Invega injection. Return to ER as needed for worsening symptoms.
== END 2024-02-12 01:03 | disposition home or self-care (01) ==
PROVIDERS: Emergency Provider Nurse Practitioner Family; PCP Family Medicine
DX: Z76.0 Encounter for issue of repeat prescription (principal); F20.9 Schizophrenia, unspecified; Z72.0 Tobacco use
CPT/HCPCS: 99281

== ENCOUNTER 2024-04-13 13:45 | Emergency (ER) | payer MEDICAID, SELFPAY ==
[2024-04-13 13:46] VITALS: BMI 44.0
--- NOTE | 2024-04-13 13:55 | W.ED.GENADLT ---
Documented by User: TRISH Sterling 04/13/24 13:59 HPI - General Adult General: Chief complaint: General Medical Stated complaint: ALLERGIC REACTION Time Seen by Provider: 04/13/24 13:54 Source: patient Mode of arrival: EMS Limitations: no limitations History of Present Illness: Patient is a 28-year-old male presents to the emergency department complaining of allergic reaction. He believes it is to his Cap[place], though he began taking it at the beginning of the month he states that he is slowly had worsening bilateral arm burning sensation. He denies any throat swelling or respiratory compromise. He has been taking hydroxyzine to combat this, which has been helping overall. He does think that his reaction is related due to the amount of dogs in his home, and he does arrive to the emergency department covered in dog care. While in the middle of examination, he request to leave AMA as he states he just wanted my blood pressure checked. MD complaint: Allergic reaction Onset (ago): week(s) Associated symptoms: Deny chest pain, dyspnea, headache(s), nausea, rash, palpitations or vomiting Review of Systems General: Reports: 10 or more systems reviewed and unremarkable except in HPI and below Const: Denies: fever(s), chills or fatigue Eyes: Denies: change in vision ENMT: Denies: throat pain, ear or mastoid pain or nasal discharge Card: Denies: chest pain, palpitations, swelling of feet/ankles or lightheadedness Resp: Denies: dyspnea, productive cough or wheezing GI: Denies: abdominal pain, nausea, vomiting, diarrhea or constipation : Denies: flank pain, difficulty urinating, dysuria or urinary frequency Musc: Denies: neck pain, back pain or joint pain Skin/Breast: Denies: rash Neuro: Reports: sensory changes (Arm burning bilaterally); Denies: headache(s), numbness in extremities or weakness in extremities PFSH ED PFSH: Medical History No pertinent family history No pertinent past medical history Social History Smoking and tobacco/nicotine status: current every day tobacco/nicotine user Physical Exam Const: COMMON NORMALS: no acute distress, patient oriented x3 and no limitations GENERAL APPEARANCE: cooperative, comfortable and disheveled (Foul odor and covered in dog hair) NUTRITIONAL APPEARANCE: obese ORIENTATION/CONSCIOUSNESS: Yes awake, Yes oriented to person, Yes oriented to place and Yes oriented to time HENMT: COMMON NORMALS: normocephalic, atraumatic and hearing grossly normal bilaterally HEAD & SCALP: normocephalic and atraumatic MOUTH: Normal oral and palatal mucosa present, lip normal and tongue normal THROAT: posterior oropharynx normal Eye: COMMON NORMALS: Equal, round and reactive pupils present, EOMs intact bilaterally and conjunctivae normal CONJUNCTIVA: Yes conjunctivae normal PUPIL: Yes Equal, round and reactive pupils present Neck/C-Spine: COMMON NORMALS: full ROM, supple and no JVD Resp: COMMON NORMALS: normal respiratory effort, No retractions, No use of accessory muscles and clear to auscultation bilaterally AUSCULTATION: clear to auscultation bilaterally Cardio: COMMON NORMALS: no JVD, regular rate, regular rhythm, No clicks present (Cardio), No murmurs present (Cardio) and No rub (Cardio) RATE: regular rate RHYTHM: regular rhythm GI: COMMON NORMALS: Normal to inspection, nondistended, normoactive bowel sounds present, Soft to palpation and non-tender AUSCULTATION: Yes normoactive bowel sounds PALPATION: Yes Soft to palpation RECTAL EXAM: Yes deferred Neuro: COMMON NORMALS: patient oriented x3, moves all extremities, no focal motor deficits and no sensory deficits noted SENSORIUM/ORIENTATION: Yes oriented to person, Yes oriented to place and Yes oriented to time Psych: COMMON NORMALS: mental status grossly normal and Normal thought process present THOUGHT PROCESS: Normal thought process present Skin: COMMON NORMALS: no rashes or lesions noted GENERAL SKIN EXAM: no rashes or lesions noted [facility] - General Adult Medical Decision Making Patient leaves AGAINST MEDICAL ADVICE before I have a chance to fully examine him. No radiology studies performed this visit Discharge Plan Discharge Patient Disposition: Left Against Medical Advice Clinical Impression: Left against medical advice Condition: Stable Prescriptions: No Action No Known Home Medications Coding Level of Care Code ED Foot Specialist for Chg Fwd Documented by User: Paresh Blanchard DO 04/22/24 06:55 HPI - General Adult General: Chief complaint: General Medical Stated complaint: ALLERGIC REACTION Time Seen by Provider: 04/13/24 13:54 PFS ED PFSH: Medical History No pertinent family history No pertinent past medical history Social History Smoking and tobacco/nicotine status: current every day tobacco/nicotine user MDM - General Adult Medical Decision Making Patient leaves AGAINST MEDICAL ADVICE before I have a chance to fully examine him. Chart reviewed Discharge Plan Discharge Patient Disposition: Left Against Medical Advice Clinical Impression: Left against medical advice Condition: Stable Prescriptions: No Action No Known Home Medications Coding Level of Care Code ED Foot Specialist for Luzma Allan
--- NOTE | 2024-04-13 13:57 | PC.NURSE ---
PT notified provider tho wang he did not actually want to be seen here today he only wanted his blood pressure checked. he stated he wanted to sign out AMA and declined any medical tx
== END 2024-04-13 14:02 | disposition left against medical advice (07) ==
PROVIDERS: Emergency Provider Physician Assistant
DX: T78.40XA Allergy, unspecified, initial encounter (principal); Z72.0 Tobacco use; X58.XXXA Exposure to other specified factors, initial encounter; Z53.29 Procedure and treatment not carried out because of patient's decision for other reasons
CPT/HCPCS: 99281

== ENCOUNTER 2025-08-02 21:23 | Emergency (ER) | payer MEDICARE, MEDICAID, SELFPAY ==
--- OUTSIDE RECORDS SUMMARY | 2017-06-09 07:15 | XMS_ITS | Continuity of Care Document ---
Author Organization [facility] Address [address] [id number] [place] [address] Phone Care Team Providers Care Legal Support Manager Name Role Phone Unavailable Unavailable Unavailable Allergies, Adverse Reactions, Alerts Substance Reaction Status Criticality No Known Allergies Active No Inform ation Medications Medication Instructions Dosage Effective Dates (start - stop) Status Comments naltrexone 50 mg tablet take 1 tablet by oral route every day 50 MG - Active hydroxyzine HCl 25 mg tablet take 1 tablet by oral route 4 times every day 25 MG - Active chlorpromazine 200 mg tablet take 1 tablet by oral route 3 times every day 200 MG - Active trazodone 100 mg tablet take 1 by Oral r oute every for 1 day 1 - Active Doc-Q-Lace 100 mg capsule take 1 capsule by oral route every day at bedtime as needed - Active meloxicam 15 mg tablet take 1 tablet by oral route every day 15 MG - Active divalproex ER 500 mg tablet,extended release 24 hr take 1 tablet by oral route every day 500 MG - Active Depakote 500 mg tablet,delayed release take 1 tablet by oral route 2 times every day 500 MG - Active Invega Sustenna 234 mg/1.5 mL intramuscular syringe inject 1.5 milliliter by intramuscular route every month 234 MG - Active promethazine 6.25 mg/5 mL syrup take 20 milliliter by oral route every day at bedtime as needed 25 MG - Active Triple Antibiotic 3.5 mg-400 unit-5,000 unit topical spray - Active ibuprofen 600 mg tablet take 1 tablet by oral route 3 times every day with food 600 MG - Active Aloe Burn Relief 0.5 % topical spray - Active Procedures Procedure Date Limited Oral Evaluation Problem Focused Limited Oral Evaluation Problem Focused EDR Approval Note Comprehensive Oral Evaluatio n New Or Established Bitewings Four Films Panoramic Film Intraoral Periapical First Film Intraoral Periapical Each Additional Film Intraoral Periapical Each Additional Film Intraoral Periapical Each Additional Film EDR Approval Note Advance Directives Directive Yes / No Effective Date File Name No Information Encounters Encounter Description Practice Location Reason(s) For Visit Diagnoses Date Provider Providers Copied on Encounter [facility], [id number] [place], [place], [id number], [place] tel:[phone] [facility] Encounter for dental exam and cleaning w/o abnormal findings No Information [facility], [id number], [id number], tel:[phone] [facility] Encounter for dental exam and cleaning w/o abnormal findings In[facility] Musa. [address] [place], [address], [place]. tel:[phone] Referring Provider: Lencho Conte, [address] [place], [address]. tel:[phone] Family History Family Member Type Diagnosis Age At Onset No Information Payers Payer name Insurance type Covered republican ID Mila george(s) D Medicaid [id number] Social History Type Description Quantity Date Captured Comments Alcohol Use Details No Caffeine Use Details Unknown Tobacco Use Status Smoking Status No Information Sex Male Chief Complaint And Reason For Visit No Information Reason For Referral Reason For Referral No Information History Of Present Illness Encounter Date Complaint History Of Prese nt Illness No Information Functional Status Date Functional Assessmen t No Information Instructions Date Instruction Additional Infor mation No Information Assessments Type Assessment Date No Information Patient Care Teams Name Effective Dates (start - stop) Status Members No Information
--- OUTSIDE RECORDS SUMMARY | 2025-08-02 21:29 | XMS_ITS | Clinical Summary ---
Author Organization [employer] [facility] Address [address] Attn: Epic Prelude ADT [place] [id number] Care Team Providers Care Hand Upper And Bottom Lacer Name Role Phone Unavailable Primary Care Provider Unavailabl e Allergies No known active allergies Medications No known medications Immunizations Immunization Administration Dates Next Due (ADACEL/BOOSTRIX)(10 YR UP) TDAP VACCINE, 0.5ML, IM 04/07/2010 Social History Tobacco Use Types Packs/Day Years Used Date Smoking Tobacco: Never Assessed Transportation Needs Answer Date Record ed In the past 12 months, has l ack of transportation kept you from medical appointments or from getting medications? Yes 12/22 In the past 12 months, has l ack of transportation kept you from meetings, work, or from getting things needed for daily living? Yes 01/11/2023 Sex and Gender Information Value Date Recorded Sex Assigned at Not on file Legal Sex Male 7:12 AM [employer] INST[employer] Gender Identity Not on file Sexual Orientation Not on file Last Filed Vital Signs Vital Sign Reading Time Taken Comments Blood Pressure 117/75 01/11/2023 3:30 PM [employer] INST[employer] Pulse 67 01/11/2023 3:30 PM [employer] IN[employer] Temperature 36.3 C (97.4 F) 01/11/2023 1:43 PM [employer] INST[employer] Respiratory Rate 18 01/11/2023 3:30 PM [employer] INST[employer] Oxygen Saturation 95% 01/11/2023 3:30 PM [employer] INST[employer] Inhaled Oxygen Concentration - - Weight 167.8 kg (370 lb) 01/11/2023 1:43 PM [employer] INST[employer] Height 188 cm (6' 2 ) 01/11/2023 1:43 PM [employer] INST[employer] Body Mass Index 47.51 01/11/2023 1:43 PM [employer] INST[employer] Plan of Treatment Health Maintenance Due Date Last Done Comments HEPATITIS B VACCINES (+ 3-dose series) 2013 HPV VACCINES (1 - 3-dose SCDM series) 2021 INFLUENZA VACCINE (#1) 2025 DTAP/TDAP/TD VACCINES (3 - Td or Tdap) 06/08/2030, 04/07/2010 Insurance [place]ID [place] Advance Directives For more information, please contact: [phone] Documents on File Type Date Recorded 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
[2025-08-02 21:35] VITALS: BMI 28.2
[2025-08-02 21:47] VITALS: BP 119/78; PULSE 101; RESP 18; TEMP 36.9; O2SAT 99
[2025-08-02 21:55] VITALS: BP 119/78; PULSE 101; RESP 18; TEMP 36.9; O2SAT 99
[2025-08-02 22:14] LABS: Glucose Urine UA Negative (Normal); Nitrate Urine Negative (Negative)
[2025-08-02 22:20] LABS: Add Urine Microscopic? YES
[2025-08-02 22:22] LABS: PCP Screen Urine Negative (Negative)
--- NOTE | 2025-08-02 22:34 | W.ED.PSYCHS ---
HPI - Psych General: Chief Complaint: Psychiatric Symptoms Stated Complaint: SI/ Hallucinations Time Seen by Provider: 08/02/25 21:30 History of Present Illness: Patient is a 30-year-old male (: 1995) who presents with altered mental status and disorganized thinking. He reports being instructed to 'get attention on himself' and makes references to the [place] and '[place].' Patient states he has a letter from the [employer] 'to protect him.' He acknowledges current methamphetamine use, reporting smoking methamphetamine 6 hours prior patient denies suicidal ideation but admits to attempting to get attention from police recently while standing in the middle of the road. He expresses a desire to return home and states he lives alone. His thought process is tangential and disorganized throughout the interview, with evidence of possible delusions and paranoia consistent with stimulant-induced psychosis. Related Data Home Medications ?Medication ?Instructions ?Recorded ?Confirmed No Known Home Medications 12/22/23 12/22/23 Allergies Allergy/AdvReac Type Severity Reaction Status Date / Time No Known Allergies Allergy Verified 12/22/23 14:17 COUNTS INCLUDE 234 BEDS AT THE [facility] ED PFSH: Medical History (Updated 08/02/25 @ 22:37 by Boni Champion DO) No pertinent family history No pertinent past medical history Social History Smoking and tobacco/nicotine status: current every day tobacco/nicotine user Physical Exam Const: COMMON NORMALS: no acute distress GENERAL APPEARANCE: cooperative; not ill appearing and not frail appearing HENMT: COMMON NORMALS: normocephalic, atraumatic and Normal external nose present HEAD & SCALP: normocephalic and atraumatic FACE & SINUS: normal facial exam and face symmetric NOSE: Normal external nose present Eye: COMMON NORMALS: Equal, round and reactive pupils present and EOMs intact bilaterally PUPIL: Yes Equal, round and reactive pupils present Neck/C-Spine: GENERAL: Yes trachea midline Chest: CHEST: Yes Symmetrical chest wall rise Resp: COMMON NORMALS: normal respiratory effort, No retractions, No use of accessory muscles and clear to auscultation bilaterally AUSCULTATION: clear to auscultation bilaterally Cardio: COMMON NORMALS: regular rate and regular rhythm RATE: regular rate RHYTHM: regular rhythm GI: COMMON NORMALS: Normal to inspection, nondistended, normoactive bowel sounds present Extremity: COMMON NORMALS: no pedal edema Neuro: JAYRO COMA SCALE: document GCS findings Jayro coma scale eye opening: Spontaneous [place] coma scale verbal response: Orientated [place] coma scale motor response: Obey commands Jayro coma scale total score: 15 SENSORY EXAM: Yes extremities (intact) Psych: ATTITUDE: Yes calm ACTIVITY/MOTOR BEHAVIOR: Yes appropriate eye contact and Yes psychomotor agitation (Mild) SPEECH: Yes excessive THOUGHT PROCESS: Flight of ideas present and Loose association thought process present Skin: COMMON NORMALS: no rashes or lesions noted GENERAL SKIN EXAM: no rashes or lesions noted Course Vital Signs: Vital signs: Vital Signs Temperature 98.5 F 08/02/25 21:55 Pulse Rate 101 H 08/02/25 21:55 Respiratory Rate 18 08/02/25 21:55 Blood Pressure 119/78 08/02/25 21:55 Pulse Oximetry 99 08/02/25 21:55 [facility] - Psych Medical Decision Making Spoke with psychiatry. Medically the patient is quite stable. His vitals are good. No signs of acute illness. He is intoxicated with methamphetamine. No other coingestion. He is not currently on psychiatric medication, but evidently has been in the past. He will go to [facility]. There is originally thought that this patient had a guardian, Hugo.. However, the patient was awarded self guardianship 1 day prior to his arrival here. He does not want stay in hospital. He currently is not suicidal or homicidal. His mentation is cleared quite a bit. He will be allowed discharge home. To return for any new or worsening symptoms. Lab Data 08/02/25 22:39 08/02/25 22:39 Laboratory Results WBC 10.18 10^3/uL (3.29-11.43) 08/02/25 22:39 RBC 4.93 10^6/uL (3.85-5.65) 08/02/25 22:39 Hgb 13.80 g/dL (11.27-16.99) 08/02/25 22:39 Hct 42.6 % (37-53) 08/02/25 22:39 MCV 86.4 fl (82-101) 08/02/25 22:39 MCH 28.0 pg (27-33) 08/02/25 22: MCHC 32.4 g/dL (30-55) 08/02/25 22:39 RDW 13.8 % (12.1-15.1) 08/02/25 22:39 Plt Count 312 10^3/cmm (157-399) 08/02/25 22:39 MPV 10.2 fL (7.4-10.4) 08/02/25 22:39 Neut % (Auto) 69.5 % 08/02/25 22:39 Lymph % (Auto) 23.3 % 08/02/25 22:39 [place] % (Auto) 5.5 % 08/02/25 22:39 Eos % (Auto) 1.0 % 08/02/25 22: Baso % (Auto) 0.4 % 08/02/25: Neut # (Auto) 7.08 10^3/uL (1.8-7.7) 08/02/25: Lymph # (Auto) 2.4 10^3/uL (0.8-4.8) 08/02/25 22:39 [place] # (Auto) 0.6 10^3/uL (0.2-0.9) 08/02/25 22:39 Eos # (Auto) 0.1 10^3/uL (0.0-0.8) 08/02/25 22: Baso # (Auto) 0.0 10^3/uL (0.0-0.1) 08/02/25: Nucleated RBC % (auto) 0 % 08/02/25: Nucleated RBCs # 0.0 /100WBC 08/02/25 22:39 Sodium 142 mmol/L (136-145) 08/02/25 22:39 Potassium 4.0 mmol/L (3.5-5.1) 08/02/25 22:39 Chloride 105 mmol/L (98-107) 08/02/25 22:39 Carbon Dioxide 23 mmol/L (22-29) 08/02/25 22:39 Anion Gap 18.0 (5-19) 08/02/25 22:39 BUN 16 mg/dL (6-20) 08/02/25 22: Creatinine 1.0 mg/dL (0.7-1.2) 08/02/25 22:39 GFR Calculation 87.2 mL/min (90-130) L 08/02/25 22:39 Glucose 97 mg/dL (65-115) 08/02/25 22:39 Calculated Osmolality 295 mOsm/kg (285-295) 08/02/25 22:39 Calcium 9.5 mg/dL (8.5-10.5) 08/02/25 22:39 Total Bilirubin 0.6 mg/dL (0.15-1.2) 08/02/25 22:39 AST 16 U/L (0-40) 08/02/25 22:39 ALT 13 U/L (0-41) 08/02/25 22:39 Alkaline Phosphatase 84 U/L (40-130) 08/02/25 22:39 Total Protein 7.8 g/dL (6.6-8.7) 08/02/25 22: Albumin 3.9 g/dL (3.5-5.2) 08/02/25 22:39 Globulin 3.9 g/dL (1.3-4.6) 08/02/25 22:39 Urine Color Dark yellow (Yellow) A 08/02/25 21:46 Urine Appearance Cloudy (CLEAR) A 08/02/25 21:46 Urine pH 5.5 (5-7) 08/02/25 21:46 Ur Specific [place] 1.035 (1.005-1.030) H 08/02/25 21:46 Urine Protein 1+ (Negative) A 08/02/25 21:46 Urine Glucose (UA) Negative (Normal) 08/02/25 21:46 Urine Ketones Trace (Negative) 08/02/25 21:46 Urine Blood Negative (Negative) 08/02/25 21:46 Urine Nitrate Negative (Negative) 08/02/25 21:46 Urine Bilirubin 1+ (Negative) H 08/02/25 21:46 Urine Urobilinogen 1.0 mg/dL (Negative) 08/02/25 21:46 Ur Leukocyte Esterase Trace (Negative) A 08/02/25 21:46 Urine RBC 0-2 /hpf (0-2) 08/02/25 21:46 Urine WBC 21-50 /hpf (0-5) H 08/02/25 21:46 Ur Squamous Epith Cells 11-20 /hpf (0-5) H 08/02/25 21:46 Amorphous Sediment Not Reportable 08/02/25 21:46 Urine Bacteria 4+ /hpf (NONE) H 08/02/25 21:46 Hyaline Casts 43.44 /lpf 08/02/25 21:46 Salicylates < 0.3 mg/dL (3-10) L 08/02/25 22:39 Urine Opiates Screen Negative ng/mL (Negative) 08/02/25 21:46 Acetaminophen < 5.0 ug/mL (10-30) L 08/02/25 22:39 Ur Barbiturates Screen Negative ng/mL (Negative) 08/02/25 21:46 Ur Phencyclidine Scrn Negative ng/mL (Negative) 08/02/25 21:46 Ur Amphetamines Screen Positive ng/mL (Negative) H 08/02/25 21:46 U Benzodiazepines Scrn Negative ng/mL (Negative) 08/02/25 21:46 Urine Cocaine Screen Negative ng/mL (Negative) 08/02/25 21:46 U Marijuana (THC) Screen Negative ng/mL (Negative) 08/02/25 21:46 Ethyl Alcohol < 10 mg/dL (0-10) 08/02/25 22:39 No radiology studies performed this visit Discharge Plan Discharge Patient Disposition: Home Clinical Impression: Chronic schizophrenia, Drug-induced psychotic disorder Condition: Stable Prescriptions: No Action No Known Home Medications Discharge Orders: Discharge ED (Routine); Ordered 08/02/25 Ordered By: Boni Champion Patient Instructions: Acute Delirium (ED), Methamphetamine Use Disorder (ED), Opioid Safety, Pain Management, Patient Portal & Iam Instructions Activity Restrictions/Additional Instructions: Return immediately to the ER for any thoughts or wishes to harm your self or anyone else. Print Language: Wolof Coding Level of Care Code ED Hospital Social Worker for Luzma Allan
[2025-08-02 22:49] LABS: Specific Gravity, Urine 1.035 (1.005-1.030); UA Slide Review UA Slide Review Perf
[2025-08-02 23:16] LABS: Hematocrit 42.6 % (37-53); Hemoglobin 13.80 g/dL (11.27-16.99); Mean Corpuscular HGB Conc 32.4 g/dL (30-55); Mean Corpuscular Hemoglobin 28.0 pg (27-33); Mean Corpuscular Volume 86.4 fl (82-101); Nucleated Red Blood Cells % 0 %; Platelet Count 312 10^3/cmm (157-399); Red Blood Count 4.93 10^6/uL (3.85-5.65); White Blood Count 10.18 10^3/uL (3.29-11.43)
[2025-08-02 23:26] LABS: Alanine Aminotransferase 13 U/L (0-41); Albumin Level 3.9 g/dL (3.5-5.2); Alkaline Phosphatase 84 U/L (40-130); Anion Gap 18.0 (5-19); Aspartate Amino Transferase 16 U/L (0-40); Blood Urea Nitrogen 16 mg/dL (6-20); Calcium 9.5 mg/dL (8.5-10.5); Carbon Dioxide 23 mmol/L (22-29); Chloride 105 mmol/L (98-107); Creatinine Clr Calc Pharmacy 135.0934; Globulin 3.9 g/dL (1.3-4.6); Glucose 97 mg/dL (65-115); Osmolality Calculated 295 mOsm/kg (285-295); Potassium 4.0 mmol/L (3.5-5.1); Sodium 142 mmol/L (136-145); Total Protein 7.8 g/dL (6.6-8.7)
[2025-08-02 23:32] LABS: Acetaminophen < 5.0 ug/mL (10-30); Alcohol Level < 10 mg/dL (0-10); Salicylate < 0.3 mg/dL (3-10)
== END 2025-08-03 00:04 | disposition home or self-care (01) ==
LOC: ER 22:37 → NP 23:04
PROVIDERS: Emergency Provider Emergency Medicine
DX: F20.9 Schizophrenia, unspecified (principal); F15.151 Other stimulant abuse with stimulant-induced psychotic disorder with hallucinations; Z72.0 Tobacco use
CPT/HCPCS: 36415; 80053; 80306; 80307; 81001; 85025; 87086; 99285

== ENCOUNTER 2025-08-28 12:16 | Emergency (ER) | payer MEDICARE, MEDICAID, SELFPAY ==
--- NOTE | 2025-08-28 12:18 | ED.C_ITS ---
HPI - Psych General: Chief Complaint: Psychiatric Symptoms Stated Complaint: mhe History of Present Illness: 30-year-old male with a history of schiz ophrenia who presents emergency room by ambulance with paranoid symptoms. He was walking down the road and flagged down EMS. He states that he has some confusion and paranoid thoughts. He says he does not want to hurt anyone or anyone else. When we try to do a workup he says he does not want to do that he does not want to stay here. I did end up talking him into going to the crisis center to try to seek some help. He says he would like to speak with a therapist. He does admit to having been doing some methamphetamines recently Related Data Home Medications ?Medication ?Instructions ?Recorded ?Confirmed No Known Home Medications 12/22/2301/13 Allergies Allergy/AdvReac Type Severity Reaction Status Date / Time No Known Allergies Allergy Verified 12/22/23 14:17 Review of Systems Narrative: Constitutional symptoms: Negative except as documented in HPI. Skin symptoms: Negative except as documented in HPI. Eye symptoms: Negative except as documented in HPI. ENMT symptoms: Negative except as documented in HPI. Respiratory symptoms: Negative except as documented in HPI. Cardiovascular symptoms: Negative except as documented in HPI. Gastrointestinal symptoms: Negative except as documented in HPI. Genitourinary symptoms: Negative except as documented in HPI. Musculoskeletal symptoms: Negative except as documented in HPI. Neurologic symptoms: Negative except as documented in HPI. Psychiatric symptoms: Negative except as documented in HPI. Endocrine symptoms: Negative except as documented in HPI. [facility] ED PFSH: Medical History (Updated 08/28/25 @ 12:25 by Kristen Pratt MD) No pertinent family history No pertinent past medical history Social History Smoking and tobacco/nicotine status: current every day tobacco/nicotine user Physical Exam Narrative: EXAM NARRATIVE: General: Alert, no acute distress. Skin: Warm, dry. Head: Normocephalic, atraumatic. Neck: Supple, trachea midline. Eye: Extraocular movements are intact. Ears, nose, mouth and throat: mucosa moist. Cardiovascular: Regular, Normal peripheral perfusion. Respiratory: Lungs are clear to auscultation, respirations are non-labored, breath sounds are equal, Symmetrical chest wall expansion. Gastrointestinal: Soft, Nontender, Non distended Musculoskeletal: Normal ROM, no deformity. Neurological: Alert and oriented, No focal neurological deficit observed. Psychiatric: Cooperative, appropriate mood & affect. Course Vital Signs: Vital signs: Vital Signs Temperature 98.3 F 08/28/25 12:24 Pulse Rate 104 H 08/28/25 12:24 Respiratory Rate 20 H 08/28/25 12:24 Blood Pressure 124/93 08/28/25 12:24 Pulse Oximetry 96 08/28/25 12:24 Oxygen Delivery Me thod Room Air 08/28/25 12:24 MDM - Psych Medical Decision Making Medical decision making: Differential diagnosis including but not limited to and based on the above HPI, review of systems and physical exam: In this patient with likely drug- induced psychosis but no homicidal or suicidal ideations who does not desire to be admitted I think an evaluation by therapist would be the next best thing. If they feel he is a danger to himself he can be sent back to the emergency room. He was escorted to the crisis center Assessment and plan: Schizophrenia Methamphetamine abuse - Discharged home - Discussed plan with patient. Answered any questions. - Evaluation and treatment of this problem were appropriate in the emergency setting. No radiology studies performed this visit Discharge Plan Discharge Patient Disposition: Home Clinical Impression: Chronic schizophrenia, Drug-induced psychotic disorder Condition: Stable Prescriptions: No Action No Known Home Medications Discharge Orders: Discharge ED (Routine); Ordered 08/28/25 Ordered By: Kristen Pratt Discharge Diet: Usual diet Discharge Activity: Increase activity as tolerated Patient Instructions: Schizophrenia (ED), Opioid Safety, Pain Management, Patient Portal & Iam Instructions Activity Restrictions/Additional Instructions: Please follow-up with the [facility] behavioral health crisis center immediately upon discharge. Phone number is [phone]. There is a 24-hour crisis hotline with the number of 519. Hours of operation are 8 AM to 6 PM. Thank you for choosing [facility] for your healthcare needs today. Please realize this is an emergency room and that we are providing you with a medical screening exam and this may not be complete and all inclusive of all the testing and or work up that you may need to determine your ailment or severity of your illness. You have been screened and evaluated and felt safe for discharge. Health conditions do change or evolve sometimes and as such it is important that you follow up with your Primary Doctor to be re checked, 3-5 days is a general good time frame for follow up. You are always welcome to return to the ED for re assessment if your symptoms are worsening or you have new concerns Print Language: American Coding Level of Care Code ED Body Shop Supervisor for Luzma Allan
[2025-08-28 12:21] VITALS: BP 124/93; PULSE 104; RESP 20; TEMP 36.8; O2SAT 96; BMI 29.5
[2025-08-28 12:24] VITALS: BP 124/93; PULSE 104; RESP 20; TEMP 36.8; O2SAT 96
== END 2025-08-28 12:26 | disposition home or self-care (01) ==
PROVIDERS: Emergency Provider Emergency Medicine
DX: F20.9 Schizophrenia, unspecified (principal); F15.959 Other stimulant use, unspecified with stimulant-induced psychotic disorder, unspecified; Z72.0 Tobacco use
CPT/HCPCS: 99283

== ENCOUNTER 2025-08-28 15:45 | Emergency (ER) | payer MEDICARE, MEDICAID, SELFPAY ==
[2025-08-28] VITALS (8 sets, daily range): BP systolic 123–140; BP diastolic 72–81; PULSE 73–101; RESP 16; TEMP 36.6–36.8; O2SAT 90–99
--- NOTE | 2025-08-28 15:51 | ED.C_ITS ---
HPI - Psych 2 General: Chief Complaint: Psychiatric Symptoms Stated Complaint: 96 Time Seen by Provider: 08/28/25 15:51 History of Present Illness: 30-year-old male with a history of schiz ophrenia who presents emergency room by ambulance earlier today with paranoid symptoms. I had sent him to crisis center to be evaluated by therapist. Patient now presents on a 96-hour hold. He is suffering from severe delusions and paranoia. Affidavits report that he keeps repeating that he has some sort of task he needs to do to keep his own guardianship and that he is a millionaire and another state. Related Data Previous Rx's ?Medication ?Instructions ?Recorded cephalexin 500 mg tablet 500 mg PO TID 7 days #21 tab s 08/28/25 Allergies Allergy/AdvReac Type Severity Reaction Status Date / Time No Known Allergies Allergy Verified 12/22/23 14:17 Review of Systems 2 Narrative: Constitutional symptoms: Negative except as documented in HPI. Skin symptoms: Negative except as documented in HPI. Eye symptoms: Negative except as documented in HPI. ENMT symptoms: Negative except as documented in HPI. Respiratory symptoms: Negative except as documented in HPI. Cardiovascular symptoms: Negative except as documented in HPI. Gastrointestinal symptoms: Negative except as documented in HPI. Genitourinary symptoms: Negative except as documented in HPI. Musculoskeletal symptoms: Negative except as documented in HPI. Neurologic symptoms: Negative except as documented in HPI. Psychiatric symptoms: Negative except as documented in HPI. Endocrine symptoms: Negative except as documented in HPI. PFSH ED 2 PFSH: Medical History (Updated 08/28/25 @ 17:19 by Kristen Pratt MD) No pertinent family history No pertinent past medical history Social History Smoking and tobacco/nicotine status: current every day tobacco/nicotine user Physical Exam 2 Narrative: EXAM NARRATIVE: General: Alert, no acute distress. Unkempt. Dirty feet. Skin: Warm, dry. Head: Normocephalic, atraumatic. Neck: Supple, trachea midline. Eye: Extraocular movements are intact. Ears, nose, mouth and throat: Dry oral mucosa Cardiovascular: Regular, Normal peripheral perfusion. Respiratory: Lungs are clear to auscultation, respirations are non-labored, breath sounds are equal, Symmetrical chest wall expansion. Gastrointestinal: Soft, Nontender, Non distended Musculoskeletal: Normal ROM, no deformity. Neurological: Alert and oriented, No focal neurological deficit observed. Psychiatric: Cooperative, very odd affect. Reports delusions and paranoia. He says he does not want to hurt anyone else but he feels like somebody is going to hurt him Course 2 Vital Signs: Vital signs: Vital Signs Temperature 98.3 F 08/28/25 15:51 Pulse Rate 101 H 08/28/25 15:51 Respiratory Rate 16 08/28/25 15:51 Blood Pressure 123/81 08/28/25 15:51 Pulse Oximetry 97 08/28/25 15:51 Oxygen Delivery Me thod Room Air 08/28/25 15:51 MDM - Psych Medical Decision Making Medical decision making: Differential diagnosis for patient with reported psychosis with plan for psychiatric admission including but not limited to and based on the above HPI, review of systems and physical exam: concerns for infection, alcohol intoxication, cardiac issues or other medical problems prior to psychiatric admission. Orders placed to evaluate differential diagnosis based on the above differential, HPI and physical exam labwork, ekg ordered to evaluate the pathologies and to clear the patient medically prior to psychiatric admission EKG: Time 1622. Rate 84. Normal sinus rhythm, No ST-T changes, no ectopy, normal OR & QRS intervals, This was reviewed and interpreted by myself the ER physician at 1625 Chest x-ray: No acute process. No infiltrate. No pneumothorax. This was reviewed and interpreted by myself the emergency room physician. I also reviewed the radiology report. Lab Review: Laboratory results were reviewed and interpreted by myself the emergency room physician. - Medically cleared. - EKG shows no ischemic changes. - Blood alcohol level is negative, as well as salicylate and Tylenol. - Drug screen is positive for methamphetamines - Urine shows signs of infection. Also concentrated. - No anemia. - BUN and creatinine are within normal limits. I reviewed the patient's medical record. Consultation: I spoke to Dr. Roth who accepts the patient to the unit. He has been placed on the ER hold for now awaiting beds. Assessment and plan: Paranoid delusions Hallucinations Dehydration Urinary tract infection Methamphetamine abuse ?Patient is on a court ordered 96-hour hold. ?IV Rocephin and IV fluids for dehydration and urinary tract infection. Recommend Keflex 3 times daily for the next 7 days. -Transfer to neuropsychiatric unit for continued evaluation and treatment. No beds at this facility. - All lab work was reviewed and interpreted personally by myself, the ER physician - Evaluation and treatment of this problem were appropriate in the emergency setting Lab Data 08/28/25 15:58 08/28/25 15:58 Radiology Impressions Chest X-Ray 08/28/25 16:02 IMPRESSION: No acute cardiopulmonary findings radiographically. Laboratory Results WBC 16.04 10^3/uL (3.29-11.43) H 08/28/25 15:58 RBC 4.79 10^6/uL (3.85-5.65) 08/28/25 15:58 Hgb 13.60 g/dL (11.27-16.99) 08/28/25 15:58 Hct 41.9 % (37-53) 08/28/25 15:58 MCV 87.5 fl (82-101) 08/28/25 15:58 MCH 28.4 pg (27-33) 08/28/25 15:58 MCHC 32.5 g/dL (30-55) 08/28/25 15:58 RDW 13.7 % (12.1-15.1) 08/28/25 15:58 Plt Count 333 10^3/cmm (157-399) 08/28/25 15:58 MPV 9.6 fL (7.4-10.4) 08/28/25 15:58 Neut % (Auto) 73.2 % 08/28/25 15:58 Lymph % (Auto) 21.8 % 08/28/25 15:58 [place] % (Auto) 4.0 % 08/28/25 15:58 Eos % (Auto) 0.5 % 08/28/25 15:58 Baso % (Auto) 0.3 % 08/28/25 15:58 Neut # (Auto) 11.73 10^3/uL (1.8-7.7) H 08/28/25 15:58 Lymph # (Auto) 3.5 10^3/uL (0.8-4.8) 08/28/25 15:58 [place] # (Auto) 0.6 10^3/uL (0.2-0.9) 08/28/25 15:58 Eos # (Auto) 0.1 10^3/uL (0.0-0.8) 08/28/25 15:58 Baso # (Auto) 0.1 10^3/uL (0.0-0.1) 08/28/25 15:58 Nucleated RBC % (auto) 0 % 08/28/25 15:58 Nucleated RBCs # 0.0 /100WBC 08/28/25 15:58 Sodium 139 mmol/L (136-145) 08/28/25 15:58 Potassium 3.8 mmol/L (3.5-5.1) 08/28/25 15:58 Chloride 102 mmol/L (98-107) 08/28/25 15:58 Carbon Dioxide 23 mmol/L (22-29) 08/28/25 15:58 Anion Gap 17.8 (5-19) 08/28/25 15:58 BUN 16 mg/dL (6-20) 08/28/25 15:58 Creatinine 0.8 mg/dL (0.7-1.2) 08/28/25 15:58 GFR Calculation 112.8 mL/min (90-130) 08/28/25 15:58 Glucose 80 mg/dL (65-115) 08/28/25 15:58 Calculated Osmolality 288 mOsm/kg (285-295) 08/28/25 15:58 Calcium 9.4 mg/dL (8.5-10.5) 08/28/25 15:58 Total Bilirubin 0.9 mg/dL (0.15-1.2) 08/28/25 15:58 AST 14 U/L (0-40) 08/28/25 15:58 ALT 12 U/L (0-41) 08/28/25 15:58 Alkaline Phosphatase 84 U/L (40-130) 08/28/25 15:58 Total Protein 7.9 g/dL (6.6-8.7) 08/28/25 15:58 Albumin 4.1 g/dL (3.5-5.2) 08/28/25 15:58 Globulin 3.8 g/dL (1.3-4.6) 08/28/25 15:58 TSH 0.25 uIU/mL (0.27-4.20) L 08/28/25 15:58 Urine Color [place] (Yellow) A 08/28/25 16:07 Urine Appearance Cloudy (CLEAR) A 08/28/25 16:07 Urine pH 6.0 (5-7) 08/28/25 16:07 Ur Specific [place] 1.039 (1.005-1.030) H 08/28/25 16:07 Urine Protein 1+ (Negative) A 08/28/25 16:07 Urine Glucose (UA) Negative (Normal) 08/28/25 16:07 Urine Ketones 3+ (Negative) H 08/28/25 16:07 Urine Blood Negative (Negative) 08/28/25 16:07 Urine Nitrate Positive (Negative) A 08/28/25 16:07 Urine Bilirubin 2+ (Negative) H 08/28/25 16:07 Urine Urobilinogen 1.0 mg/dL (Negative) 08/28/25 16:07 Ur Leukocyte Esterase Trace (Negative) A 08/28/25 16:07 Urine RBC 0-4 /hpf (0-2) H 08/28/25 16:07 Urine WBC 5-10 /hpf (0-5) H 08/28/25 16:07 Ur Squamous Epith Cells 5-10 /hpf (0-5) H 08/28/25 16:07 Amorphous Sediment Not Reportable 08/28/25 16:07 Urine Bacteria Trace /hpf (NONE) 08/28/25 16:07 Hyaline Casts 5-10 /lpf H 08/28/25 16:07 Urine Mucus 2+ /hpf 08/28/25 16:07 Salicylates < 0.3 mg/dL (3-10) L 08/28/25 15:58 Urine Opiates Screen Negative ng/mL (Negative) 08/28/25 16:07 Acetaminophen < 5.0 ug/mL (10-30) L 08/28/25 15:58 Ur Barbiturates Screen Negative ng/mL (Negative) 08/28/25 16:07 Ur Phencyclidine Scrn Negative ng/mL (Negative) 08/28/25 16:07 Ur Amphetamines Screen Positive ng/mL (Negative) H 08/28/25 16:07 U Benzodiazepines Scrn Negative ng/mL (Negative) 08/28/25 16:07 Urine Cocaine Screen Negative ng/mL (Negative) 08/28/25 16:07 U Marijuana (THC) Screen Negative ng/mL (Negative) 08/28/25 16:07 Ethyl Alcohol < 10 mg/dL (0-10) 08/28/25 15:58 Influenza A (PCR) Negative (Negative) 08/28/25 16:50 Influenza Type B (PCR) Negative (Negative) 08/28/25 16:50 RSV (PCR) Negative (Negative) 08/28/25 16:50 SARS-CoV-2 (PCR) Negative (Negative) 08/28/25 16:50 No radiology studies performed this visit Discharge Plan Discharge Patient Disposition: Xfer Psychiatric Hosp Clinical Impression: Chronic schizophrenia, Acute psychosis, Dehydration, Urinary tract infection, Methamphetamine abuse, Delusions, Paranoia Condition: Stable Coding Level of Care Code ED Retail Client Solutions Analyst for Luzma Allan
--- NOTE | 2025-08-28 15:51 | ECG_ITS ---
[facility] Test Date: 2025-08-28 Pat Name: Janes Powell Department: Room: Gender: Male [employer] Supervisor: : 1995 Requested By: Kristen Chandler Order Number: [id number] Virgil MD: BELÉN MENCHACA Measurements Intervals [place] Rate: 84 P: 1 FL: 171 QRS: -5 QRSD: 115 T: 14 QT: 380 QTc: 450 Interpretive Statements SINUS RHYTHM MODERATE INTRAVENTRICULAR CONDUCTION DELAY [110+ ms QRS DURATION] MINIMAL VOLTAGE CRITERIA FOR LVH, CONSIDER NORMAL VARIANT [MEETS CRITERIA IN ONE OF: R(aVL), S(V1), R(V5), R(V5/V6)+S(V1)] Compared to ECG 01/04/2023 17:05:54 Intraventricular conduction delay now present Electronically Signed On 08-28-2025 16:49:58 CDT by BELÉN MENCHACA [email or web address] [id number]
--- NOTE | 2025-08-28 16:02 | XRR_ITS ---
PROCEDURE INFORMATION: Exam: XR Chest Exam date and time: 08/28/2025 4:05 PM Age: 30 years old Clinical indication: Screening exam; Other screening; Additional info: Psychiatric work up TECHNIQUE: Imaging protocol: Radiologic exam of the chest. Views: 1 view. COMPARISON: CR XR chest 1V portable [id number] 01/04/2023 4:14 PM FINDINGS: Lungs: No infiltrates. No suspicious masses or nodules. Pleural spaces: No pleural effusions or pneumothorax. Heart/Mediastinum: Heart size within normal limits. No pulmonary vascular congestion. Bones/joints: No significant osseous lesion. No fractures. XR/XR chest 1V portable [id number] IMPRESSION: No acute cardiopulmonary findings radiographically.
[2025-08-28 16:03] LABS: Hematocrit 41.9 % (37-53); Hemoglobin 13.60 g/dL (11.27-16.99); Mean Corpuscular HGB Conc 32.5 g/dL (30-55); Mean Corpuscular Hemoglobin 28.4 pg (27-33); Mean Corpuscular Volume 87.5 fl (82-101); Nucleated Red Blood Cells % 0 %; Platelet Count 333 10^3/cmm (157-399); Red Blood Count 4.79 10^6/uL (3.85-5.65); White Blood Count 16.04 10^3/uL (3.29-11.43)
--- NOTE | 2025-08-28 16:07 | PC.NURSE ---
pt changed into green paper scrubs, has personal slides; no other personal belongings on person.
[2025-08-28 16:28] LABS: Glucose Urine UA Negative (Normal); Nitrate Urine Positive (Negative)
[2025-08-28 16:32] LABS: Alanine Aminotransferase 12 U/L (0-41); Albumin Level 4.1 g/dL (3.5-5.2); Alkaline Phosphatase 84 U/L (40-130); Anion Gap 17.8 (5-19); Aspartate Amino Transferase 14 U/L (0-40); Blood Urea Nitrogen 16 mg/dL (6-20); Calcium 9.4 mg/dL (8.5-10.5); Carbon Dioxide 23 mmol/L (22-29); Chloride 102 mmol/L (98-107); Creatinine Clr Calc Pharmacy 179.1672; Globulin 3.8 g/dL (1.3-4.6); Glucose 80 mg/dL (65-115); Osmolality Calculated 288 mOsm/kg (285-295); Potassium 3.8 mmol/L (3.5-5.1); Sodium 139 mmol/L (136-145); Thyroid Stimulating Hormone 0.25 uIU/mL (0.27-4.20); Total Protein 7.9 g/dL (6.6-8.7)
[2025-08-28 16:34] LABS: PCP Screen Urine Negative (Negative)
--- NOTE | 2025-08-28 16:34 | PC.NURSE ---
Pt was read his 96 hour hold rights at this time. Security was present
[2025-08-28 16:36] LABS: Acetaminophen < 5.0 ug/mL (10-30); Alcohol Level < 10 mg/dL (0-10); Salicylate < 0.3 mg/dL (3-10)
[2025-08-28 17:02] LABS: Add Urine Microscopic? YES; Specific Gravity, Urine 1.039 (1.005-1.030)
[2025-08-28] MEDS: cefTRIAXone 1,000 mg SDV 1000 MG IVP (17:24)
[2025-08-28 17:40] LABS: Respiratory Syncytial Virus Ce NEGATIVE (Negative); SARS-CoV-2 PCR NEGATIVE (Negative)
[2025-08-28] MEDS: water for injection-sterile 10 ML (21:34)
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
--- NOTE | 2025-08-28 22:47 | PC.NURSE ---
Pt released to [facility] custody @[id number].
--- NOTE | 2025-08-28 23:03 | PC.NURSE ---
Attempted to notify Shannan Powell , was not able to get ahold of her. This RN notified Alexei Sotomayor to give update of patient. Pt mom had no questions or concerns.
== END 2025-08-28 22:50 | disposition home or self-care (01) ==
LOC: ER 17:30 → ER IP 18:19
PROVIDERS: Emergency Medicine; Emergency Provider Student in an Organized Health Care Education/Training Program
DX: F20.9 Schizophrenia, unspecified (principal); E86.0 Dehydration; N39.0 Urinary tract infection, site not specified; F22 Delusional disorders; F15.10 Other stimulant abuse, uncomplicated; Z72.0 Tobacco use; F15.959 Other stimulant use, unspecified with stimulant-induced psychotic disorder, unspecified
CPT/HCPCS: 36415; 71045; 80053; 80306; 80307; 81001; 84443; 85025; 87637; 93005; 96361; 96372; 96374; 99285; J0696; J3490; J7030

== ENCOUNTER 2025-09-15 17:17 | Emergency (ER) | payer MEDICARE, MEDICAID, SELFPAY ==
[2025-09-15 17:18] VITALS: BP 124/74; PULSE 82; RESP 18; TEMP 36.7; O2SAT 100; BMI 36.9
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
--- OUTSIDE RECORDS SUMMARY | 2025-09-15 17:25 | XMS_ITS | Clinical Summary ---
Author Organization [employer] 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 Gender Identity Not on file Sexual Orientation Not on file Last Filed Vital Signs Vital Sign Reading Time Taken Comments Blood Pressure 117/75 01/11/2023 3:30 PM PROPERTY PORTFOLIO OFFICER Pulse 67 01/11/2023 3:30 PM PROPERTY PORTFOLIO OFFICER Temperature 36.3 C (97.4 F) 01/11/2023 1:43 PM PROPERTY PORTFOLIO OFFICER Respiratory Rate 18 01/11/2023 3:30 PM PROPERTY PORTFOLIO OFFICER Oxygen Saturation 95% 01/11/2023 3:30 PM PROPERTY PORTFOLIO OFFICER Inhaled Oxygen Concentration - - Weight 167.8 kg (370 lb) 01/11/2023 1:43 PM PROPERTY PORTFOLIO OFFICER Height 188 cm (6' 2 ) 01/11/2023 1:43 PM PROPERTY PORTFOLIO OFFICER Body Mass Index 47.51 01/11/2023 1:43 PM PROPERTY PORTFOLIO OFFICER Plan of Treatment Health Maintenance Due Date Last Done Comments HEPATITIS B VACCINES (+ 3-dose series) 2013 HPV VACCINES (1 - 3-dose SCDM series) 2021 INFLUENZA VACCINE (#1) 2025 DTAP/TDAP/TD VACCINES (3 - Td or Tdap) 06/08/2030, 04/07/2010 Insurance [place]ICAID [place] Advance Directives For more information, please contact: [phone] Documents on File Type Date Recorded 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
--- NOTE | 2025-09-15 18:19 | PC.NURSE ---
PT refused to urinate in urinal while in bed. PT stood to urinate. PT educated on risk of movement and standing before medically cleared.
--- NOTE | 2025-09-15 18:21 | PC.NURSE ---
PT removed c-collar. This nurse asked PT to put c-collar back on until scans are back, PT refused
--- NOTE | 2025-09-15 18:38 | PC.NURSE ---
PT refuses to stay on vital monitor
--- NOTE | 2025-09-15 19:01 | PC.NURSE ---
Upon shift change pt asked for nurse. This nurse spoke with the pt and he wanted to leave AMA. This nurse explained we were waiting on his CT to images to be read. Pt stated he understood and still wished to leave. Pt stated to get this IV out of my arm so I can go outside and smoke. This nurse obtained an AMA form and notified provided. spoke with pt. Pt still wished to AMA. Signature obtained. Pt IV removed and departed the ED with belongings.
== END 2025-09-15 18:57 | disposition left against medical advice (07) ==
PROVIDERS: Emergency Provider Emergency Medicine
DX: S39.012A Strain of muscle, fascia and tendon of lower back, initial encounter (principal); V49.9XXA Car occupant (driver) (passenger) injured in unspecified traffic accident, initial encounter
CPT/HCPCS: 70450; 72125; 72128; 72131; 99284

== ENCOUNTER 2025-09-17 04:50 | Emergency (ER) | payer MEDICARE, MEDICAID, SELFPAY ==
[2025-09-17 04:56] VITALS: BP 130/81; PULSE 83; O2SAT 99
--- NOTE | 2025-09-17 04:56 | PC.NURSE ---
Pt is refusing to speak to this nurse, pt just yells NO loudly when I attempt to ask him questions.
--- NOTE | 2025-09-17 04:57 | PC.NURSE ---
Unable to obtain a full set of vitals on patient, pt being uncooperative at this time.
--- OUTSIDE RECORDS SUMMARY | 2025-09-17 04:58 | XMS_ITS | Clinical Summary ---
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 Gender Identity Not on file Sexual Orientation Not on file Last Filed Vital Signs Vital Sign Reading Time Taken Comments Blood Pressure 117/75 01/11/2023 3:30 PM FARM INSTRUCTOR Pulse 67 01/11/2023 3:30 PM FARM INSTRUCTOR Temperature 36.3 C (97.4 F) 01/11/2023 1:43 PM FARM INSTRUCTOR Respiratory Rate 18 01/11/2023 3:30 PM FARM INSTRUCTOR Oxygen Saturation 95% 01/11/2023 3:30 PM FARM INSTRUCTOR Inhaled Oxygen Concentration - - Weight 167.8 kg (370 lb) 01/11/2023 1:43 PM FARM INSTRUCTOR Height 188 cm (6' 2 ) 01/11/2023 1:43 PM FARM INSTRUCTOR Body Mass Index 47.51 01/11/2023 1:43 PM FARM INSTRUCTOR Plan of Treatment Health Maintenance Due Date Last Done Comments HEPATITIS B VACCINES (+ 3-dose series) 2013 HPV VACCINES (1 - 3-dose SCDM series) 2021 INFLUENZA VACCINE (#1) 2025 DTAP/TDAP/TD VACCINES (3 - Td or Tdap) 06/08/2030, 04/07/2010 Insurance [place] Advance Directives For more information, please contact: [phone] Documents on File Type Date Recorded 

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
== END 2025-09-17 05:38 | disposition home or self-care (01) ==
PROVIDERS: Emergency Provider Student in an Organized Health Care Education/Training Program
DX: F20.9 Schizophrenia, unspecified (principal); Z72.0 Tobacco use
CPT/HCPCS: 99281

== ENCOUNTER 2025-09-17 06:54 | Inpatient (IN) | payer MEDICARE, MEDICAID, SELFPAY ==
[2025-09-17] VITALS (12 sets, daily range): BP systolic 115–140; BP diastolic 68–92; PULSE 68–109; RESP 14–18; TEMP 36.7–37; O2SAT 92–98
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
[2025-09-17 07:32] LABS: Hematocrit 40.6 % (37-53); Hemoglobin 13.10 g/dL (11.27-16.99); Mean Corpuscular HGB Conc 32.3 g/dL (30-55); Mean Corpuscular Hemoglobin 28.3 pg (27-33); Mean Corpuscular Volume 87.7 fl (82-101); Nucleated Red Blood Cells % 0 %; Platelet Count 282 10^3/cmm (157-399); Red Blood Count 4.63 10^6/uL (3.85-5.65); White Blood Count 11.56 10^3/uL (3.29-11.43)
[2025-09-17] MEDS: LORazepam 2 mg/mL INJ 1 mL IM ×2 (07:34→13:19)
[2025-09-17] MEDS: water for injection-sterile 10 ML 1.2 ML (07:35)
[2025-09-17 07:49] LABS: Alanine Aminotransferase 13 U/L (0-41); Albumin Level 3.7 g/dL (3.5-5.2); Alkaline Phosphatase 90 U/L (40-130); Anion Gap 16.1 (5-19); Aspartate Amino Transferase 12 U/L (0-40); Blood Urea Nitrogen 11 mg/dL (6-20); Calcium 8.9 mg/dL (8.5-10.5); Carbon Dioxide 24 mmol/L (22-29); Chloride 102 mmol/L (98-107); Globulin 3.2 g/dL (1.3-4.6); Glucose 112 mg/dL (65-115); Osmolality Calculated 288 mOsm/kg (285-295); Potassium 3.1 mmol/L (3.5-5.1); Sodium 139 mmol/L (136-145); Total Protein 6.9 g/dL (6.6-8.7)
[2025-09-17 07:56] LABS: Acetaminophen < 5.0 ug/mL (10-30); Alcohol Level < 10 mg/dL (0-10); Salicylate < 0.3 mg/dL (3-10)
[2025-09-17] MEDS: ketamine 100 mg/mL Inj 5 mL 200 MG IM (08:02)
--- NOTE | 2025-09-17 08:16 | PC.NURSE ---
Pt was given his 96 hour hold rights at this time. Security present.
--- NOTE | 2025-09-17 08:51 | PC.PHAR ---
[facility] pt has nothing on file except [place] from March of 2024
--- NOTE | 2025-09-17 12:28 | PC.ADMIT ---
[address] Admission Note:Pt was brought in to the ED by PD d/t him yelling at people and standing in the street. ED staff state that pt is manic, paranoid, and delusional. A code 10 was called on him in the ED and he was given 2mg IM Ativan, 10mg IM Geodon, and 200mg IM Ketamine (see MAR). Pt is cooperative with his assessment, but things like his relationship to people he knows changes. He says a person is his and then tells us it's his daughter. He talks about being able to feel spiritual presence, but not being able to talk with them. He stated that he is able to use meth legally because he has a prescription for it, but he states not having used it since 08/25/25. He did provide a urine specimen. The patient,Janes Powell,30 y/o, was given written information regarding hospital policies, unit procedures and contact persons. Patient's smoking status: current every day smoker. Vital Signs - 8 hr 09/17/25 07:00 09/17/25 08:33 09/17/25 08:48 Temperature 98.6 F Pulse Rate 86 83 72 Respiratory Rate 18 14 14 Blood Pressure 137/85 140/92 121/72 Pulse Oximetry 97 92 94 Oxygen Delivery Method Room Air 09/17/25 09:00 09/17/25 09:03 09/17/25 09:18 Temperature Pulse Rate 71 73 72 Respiratory Rate 15 14 16 Blood Pressure 118/75 115/68 120/77 Pulse Oximetry 94 93 94 Oxygen Delivery Method 09/17/25 09:33 09/17/25 09:48 09/17/25 10:00 Temperature Pulse Rate 68 78 77 Respiratory Rate 14 16 15 Blood Pressure 122/84 120/73 120/73 Pulse Oximetry 95 98 98 Oxygen Delivery Method 09/17/25 11:33 Temperature Pulse Rate Respiratory Rate Blood Pressure Pulse Oximetry Oxygen Delivery Method Room Air
[2025-09-17 12:58] LABS: PCP Screen Urine Negative (Negative)
[2025-09-17] MEDS: haloperidol inj 5 mg/mL INJ 1 mL IM (13:19)
[2025-09-17] MEDS: diphenhydrAMINE 50 mg/mL SDV 1mL IM (13:19)
--- NOTE | 2025-09-17 13:20 | PC.NURSE ---
Pt in hallway yelling and upset, Dr. Scruggs stepped out of his office and ordered that we give the pt a B52 (see MAR). Security came down to assist. Pt sat on the edge of his bed and was cooperative with the injection.
--- NOTE | 2025-09-17 19:35 | PC.NURSE ---
pt rounding this nurse rounded on patient at this time. pt is resting eyes closed resp even and unlabored
[2025-09-18 06:00] VITALS: BP 90/59; PULSE 92; RESP 18; TEMP 36.6; O2SAT 98
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
[2025-09-18 14:00] VITALS: RESP 15
[2025-09-18 17:52] VITALS: BP 94/57; PULSE 115; RESP 17; TEMP 36.6; O2SAT 97
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
[2025-09-18 20:13] VITALS: BP 122/85; PULSE 106; RESP 16; TEMP 36.6; O2SAT 96
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
--- NOTE | 2025-09-19 05:14 | PC.NURSE ---
pt meds pt ativan, Haldol and Benadryl, wasted by this nurse and july lyn
== END 2025-09-18 21:52 | disposition home or self-care (01) | DRG 885 ==
LOC: ER 09:24 → NP 10:58
PROVIDERS: Admitting Provider Psychiatry & Neurology Psychiatry; Emergency Provider Family Medicine; Visit Provider Psychiatry & Neurology Psychiatry
DX: F25.0 Schizoaffective disorder, bipolar type (principal); R45.851 Suicidal ideations; F41.9 Anxiety disorder, unspecified; F17.210 Nicotine dependence, cigarettes, uncomplicated; F15.90 Other stimulant use, unspecified, uncomplicated; G89.29 Other chronic pain; M54.9 Dorsalgia, unspecified; F63.81 Intermittent explosive disorder; Z91.51 Personal history of suicidal behavior
CPT/HCPCS: 36415; 70450; 72125; 72128; 72131; 80053; 80306; 80307; 85025; 96372; 99281; 99284; 99285; J1200; J1630; J2060; J3486; J3490; J9999

== ENCOUNTER 2025-09-23 14:49 | Emergency (ER) | payer SELFPAY ==
[2025-09-23 14:51] VITALS: BP 129/72; PULSE 81; RESP 20; TEMP 36.7; O2SAT 100; BMI 42.2
--- OUTSIDE RECORDS SUMMARY | 2025-09-23 14:56 | XMS_ITS | Clinical Summary ---
Author Organization [employer] [facility] Address [address] Attn: Epic Prelude ADT [place] [id number] Care Team Providers Care Information Tech Name Role Phone Unavailable Primary Care Provider [...] on file Legal Sex Male 7:12 AM WAIT STAFF Gender Identity Not on file Sexual Orientation Not on file Last Filed Vital Signs Vital Sign Reading Time Taken Comments Blood Pressure 117/75 01/11/2023 3:30 PM WAIT STAFF Pulse 67 01/11/2023 3:30 PM WAIT STAFF Temperature 36.3 C (97.4 F) 01/11/2023 1:43 PM WAIT STAFF Respiratory Rate 18 01/11/2023 3:30 PM WAIT STAFF Oxygen Saturation 95% 01/11/2023 3:30 PM WAIT STAFF Inhaled Oxygen Concentration - - Weight 167.8 kg (370 lb) 01/11/2023 1:43 PM WAIT STAFF Height 188 cm (6' 2 ) 01/11/2023 1:43 PM WAIT STAFF Body Mass Index 47.51 01/11/2023 1:43 PM WAIT STAFF Plan of Treatment Health Maintenance Due Date Last Done Comments HEPATITIS B VACCINES (+ 3-dose series) 2013 HPV VACCINES (1 - 3-dose SCDM series) 2021 INFLUENZA VACCINE (#1) 2025 DTAP/TDAP/TD VACCINES (3 - Td or Tdap) 06/08/2030, 04/07/2010 Insurance [place]ICAID [place] Advance Directives For more information, please contact: [phone] Documents on File Type Date 

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
--- NOTE | 2025-09-23 15:10 | PC.NURSE ---
Pt was read his 96 hour hold rights at this time. Security present
[2025-09-23] MEDS: water for injection-sterile 10 ML 1.2 ML (15:13)
[2025-09-23] MEDS: LORazepam 2 mg/mL INJ 1 mL IM (15:13)
[2025-09-23 15:41] LABS: Glucose Urine UA Negative (Normal); Nitrate Urine Negative (Negative); Specific Gravity, Urine 1.004 (1.005-1.030)
[2025-09-23 15:46] LABS: Add Urine Microscopic? YES
[2025-09-23 15:48] LABS: PCP Screen Urine Negative (Negative)
--- NOTE | 2025-09-23 16:00 | P.NPUHP_ITS ---
Providers/Chief Complaint 2 Chief Complaint: delusions HPI NPU History of Present Illness Jnaes Powell is a 30 year old male Meds NPU Home Medications ?Medication ?Instructions ?Recorded ?Confirmed ?Last Taken ?Type No Known Home Medications 09/17/2503/14 Unknown History Allergies Allergy/AdvReac Type Severity Reaction Status Date / Time No Known Allergies Allergy Verified 12/22/23 14:17 PFSH NPU 2 PFSH: Medical History (Updated 09/23/25 @ 15:58 by Kristen Pratt MD) No pertinent family history No pertinent past medical history Social History Smoking and tobacco/nicotine status: current every day tobacco/nicotine user Vitals/I&O/Wt Last Vital Signs Temp 98.0 F 09/23/25 14:51 Pulse 81 09/23/25 14:51 Resp 20 H 09/23/25 14:51 BP 129/72 09/23/25 14:51 Pulse Ox 100 09/23/25 14:51 O2 Del Method Room Air 09/23/25 14:51 Weight last 48 hrs Weight 145.15 kg Data NPU 09/23/25 15:13 09/23/25 15:13 A&P PDMP PDMP Reviewed: Not Reviewed Coding Level of Care Code Acute Code for Chg Sanjana
[2025-09-23 16:03] LABS: Hematocrit 40.8 % (37-53); Hemoglobin 13.10 g/dL (11.27-16.99); Mean Corpuscular HGB Conc 32.1 g/dL (30-55); Mean Corpuscular Hemoglobin 28.5 pg (27-33); Mean Corpuscular Volume 88.9 fl (82-101); Nucleated Red Blood Cells % 0 %; Platelet Count 340 10^3/cmm (157-399); Red Blood Count 4.59 10^6/uL (3.85-5.65); White Blood Count 12.11 10^3/uL (3.29-11.43)
[2025-09-23 16:34] LABS: UA Slide Review UA Slide Review Perf
[2025-09-23 16:39] LABS: Alanine Aminotransferase 24 U/L (0-41); Albumin Level 3.9 g/dL (3.5-5.2); Alkaline Phosphatase 83 U/L (40-130); Anion Gap 15.5 (5-19); Aspartate Amino Transferase 22 U/L (0-40); Blood Urea Nitrogen 13 mg/dL (6-20); Calcium 9.0 mg/dL (8.5-10.5); Carbon Dioxide 26 mmol/L (22-29); Chloride 101 mmol/L (98-107); Creatinine Clr Calc Pharmacy 229.2460; Globulin 3.5 g/dL (1.3-4.6); Glucose 102 mg/dL (65-115); Osmolality Calculated 288 mOsm/kg (285-295); Potassium 3.5 mmol/L (3.5-5.1); Sodium 139 mmol/L (136-145); Thyroid Stimulating Hormone 0.11 uIU/mL (0.27-4.20); Total Protein 7.4 g/dL (6.6-8.7)
--- NOTE | 2025-09-23 16:42 | PC.NURSE ---
PT REQUESTING TO LEAVE. PT EDUCATED ON RISKS OF LEAVING WITHOUT ALL LAB WORK RESULTED. PT CHOSING TO LEAVE AFTER EDUCATION.
[2025-09-23 16:45] LABS: Acetaminophen < 5.0 ug/mL (10-30); Alcohol Level < 10 mg/dL (0-10); Salicylate < 0.3 mg/dL (3-10)
--- NOTE | 2025-09-23 17:01 | PC.NURSE ---
ATTEMPTED TO CALL PATIENT IN REGARDS TO TSH LEVELS AND NEEDING TO FOLLOW UP WITH PCP. PHONE NUMBER WE HAVE ON FILE IS NOT CORRECT FOR PATIENT PER PERSON WHO ANSWERED THE PHONE. DR GLOVER NOTIFIED.
== END 2025-09-23 16:48 | disposition home or self-care (01) ==
PROVIDERS: Emergency Provider Emergency Medicine
DX: F20.9 Schizophrenia, unspecified (principal); F63.81 Intermittent explosive disorder; Z72.0 Tobacco use
CPT/HCPCS: 80053; 80306; 80307; 81001; 84443; 85025; 96372; 99284; J2060; J3486

== ENCOUNTER 2025-10-02 12:21 | Emergency (ER) | payer MEDICARE, SELFPAY ==
[2025-10-02 12:24] VITALS: BP 156/101; PULSE 72; RESP 16; TEMP 36.7; O2SAT 99; BMI 38.4
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
[2025-10-02 12:43] VITALS: BP 144/89; PULSE 68; RESP 18; O2SAT 99
--- OUTSIDE RECORDS SUMMARY | 2025-10-02 12:43 | XMS_ITS | Clinical Summary ---
Author Organization [employer] [facility] Address [address] Attn: Epic Prelude ADT [place] [address] Care Team Providers Care Spring Setter Name Role Phone Unavailable Primary Care Provider [...] on file Legal Sex Male 7:12 AM HOUSING DIRECTOR Gender Identity Not on file Sexual Orientation Not on file Last Filed Vital Signs Vital Sign Reading Time Taken Comments Blood Pressure 117/75 01/11/2023 3:30 PM HOUSING DIRECTOR Pulse 67 01/11/2023 3:30 PM HOUSING DIRECTOR Temperature 36.3 C (97.4 F) 01/11/2023 1:43 PM HOUSING DIRECTOR Respiratory Rate 18 01/11/2023 3:30 PM HOUSING DIRECTOR Oxygen Saturation 95% 01/11/2023 3:30 PM HOUSING DIRECTOR Inhaled Oxygen Concentration - - Weight 167.8 kg (370 lb) 01/11/2023 1:43 PM HOUSING DIRECTOR Height 188 cm (6' 2 ) 01/11/2023 1:43 PM HOUSING DIRECTOR Body Mass Index 47.51 01/11/2023 1:43 PM HOUSING DIRECTOR Plan of Treatment Health Maintenance Due Date Last Done Comments HEPATITIS B VACCINES (+ 3-dose series) 2013 HPV VACCINES (1 - 3-dose SCDM series) 2021 INFLUENZA VACCINE (#1) 2025 DTAP/TDAP/TD VACCINES (3 - Td or Tdap) 06/08/2030, 04/07/2010 Insurance [place] Advance Directives For more information, please contact: [phone] Documents on File Type Date Recorded Patient Tombstone Setter Expl anation Advance Directive POA 01/11/2023 2:25 PM Letters of Guardians hip of Incapacitated Person
== END 2025-10-02 12:45 | disposition home or self-care (01) ==
LOC: ER 12:37
PROVIDERS: Emergency Provider Emergency Medicine
DX: S39.012A Strain of muscle, fascia and tendon of lower back, initial encounter (principal); J06.9 Acute upper respiratory infection, unspecified; Z72.0 Tobacco use; V89.2XXA Person injured in unspecified motor-vehicle accident, traffic, initial encounter
CPT/HCPCS: 99283

== ENCOUNTER 2025-10-02 15:41 | Emergency (ER) | payer MEDICARE, SELFPAY ==
[2025-10-02 15:41] VITALS: RESP 18; TEMP 36.6; O2SAT 98; BMI 38.1
--- OUTSIDE RECORDS SUMMARY | 2025-10-02 15:50 | XMS_ITS | Clinical Summary ---
Author Organization [facility] Address [address] Johnson: [place] [address] Care Team Providers Care Fruit Checker Name Role Phone Unavailable Primary Care Provider [...] on file Legal Sex Male 7:12 AM CHICKEN VACCINATOR Gender Identity Not on file Sexual Orientation Not on file Last Filed Vital Signs Vital Sign Reading Time Taken Comments Blood Pressure 117/75 01/11/2023 3:30 PM CHICKEN VACCINATOR Pulse 67 01/11/2023 3:30 PM CHICKEN VACCINATOR Temperature 36.3 C (97.4 F) 01/11/2023 1:43 PM CHICKEN VACCINATOR Respiratory Rate 18 01/11/2023 3:30 PM CHICKEN VACCINATOR Oxygen Saturation 95% 01/11/2023 3:30 PM CHICKEN VACCINATOR Inhaled Oxygen Concentration - - Weight 167.8 kg (370 lb) 01/11/2023 1:43 PM CHICKEN VACCINATOR Height 188 cm (6' 2 ) 01/11/2023 1:43 PM CHICKEN VACCINATOR Body Mass Index 47.51 01/11/2023 1:43 PM CHICKEN VACCINATOR Plan of Treatment Health Maintenance Due Date Last Done Comments HEPATITIS B VACCINES (1 of 3 - 19+ 3-dose series) 2013 HPV VACCINES (1 - 3-dose SCDM series) 2021 INFLUENZA VACCINE (#1) 2025 DTAP/TDAP/TD VACCINES (3 - Td or Tdap) 06/08/2030, 04/07/2010 Insurance [place] Advance Directives For more information, please contact: [phone] Documents on File Type Date Recorded Patient Traffic Rate Clerk Expl anation Advance Directive POA 01/11/2023 2:25 PM Letters of Guardians hip of Incapacitated Person
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
[2025-10-02] MEDS: orphenadrine 30 mg/mL Inj 2 mL 60 MG IM (16:02)
--- NOTE | 2025-10-02 16:44 | PC.PHAR ---
Medication is filled at [facility], Patient didn't pick it up .
[2025-10-02 17:51] VITALS: BP 114/67; PULSE 86; RESP 16; O2SAT 96
== END 2025-10-02 17:52 | disposition home or self-care (01) ==
PROVIDERS: Emergency Provider Physician Assistant
DX: S32.010A Wedge compression fracture of first lumbar vertebra, initial encounter for closed fracture (principal); M47.814 Spondylosis without myelopathy or radiculopathy, thoracic region; Z91.199 Patient's noncompliance with other medical treatment and regimen due to unspecified reason; Z73.5 Social role conflict, not elsewhere classified; Z59.00 Homelessness unspecified; Z72.0 Tobacco use; X58.XXXA Exposure to other specified factors, initial encounter
CPT/HCPCS: 72128; 72131; 96372; 99284; J1100; J1885; J2360

== ENCOUNTER 2025-10-09 10:39 | Emergency (ER) | payer MEDICARE, SELFPAY ==
[2025-10-09 10:43] VITALS: BP 141/89; PULSE 81; RESP 16; TEMP 36.8; O2SAT 100; BMI 31.6
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
--- NOTE | 2025-10-09 10:55 | ED.C_ITS ---
HPI - Psych General: Chief Complaint: Psychiatric Symptoms Stated Complaint: mhe Time Seen by Provider: 10/09/25 10:40 Source: patient and police Limitations: no limitations History of Present Illness: 30-year-old male is very well-known to [facility] and has a history of schizophrenia. Patient brought in by police today as he had some erratic behavior. Patient states that he believes he has rolled blood in him and he wants to protect people. Patient adamantly denies SI or HI. He does not appear acutely psychotic here and answers all my questions appropriately. Related Data Previous Rx's ?Medication ?Instructions ?Recorded azithromycin 250 mg tablet See Rx Instructions PO .COM PLEX #6 10/02/25 (Zithromax Z-Dagoberto) tabs cyclobenzaprine 10 mg tablet 10 mg PO Q8H PRN muscle s pasm #20 10/02/25 tabs diclofenac sodium 50 mg 50 mg PO BID PRN pain #14 ta bs 10/02/25 tablet,delayed release Allergies Allergy/AdvReac Type Severity Reaction Status Date / Time No Known Allergies Allergy Verified 12/22/23 14:17 [facility] ED PFSH: Medical History No pertinent family history No pertinent past medical history Social History Smoking and tobacco/nicotine status: current every day tobacco/nicotine user Physical Exam Const: COMMON NORMALS: no acute distress, patient oriented x3 and healthy appearing HENMT: COMMON NORMALS: normocephalic and atraumatic HEAD & SCALP: normocephalic and atraumatic Neck/C-Spine: COMMON NORMALS: full ROM and supple Chest: COMMONS NORMALS: normal inspection of the chest Resp: COMMON NORMALS: normal respiratory effort Cardio: COMMON NORMALS: regular rate RATE: regular rate Extremity: COMMON NORMALS: normal to inspection and full ROM Neuro: COMMON NORMALS: patient oriented x3, moves all extremities and no focal motor deficits Psych: COMMON NORMALS: mental status grossly normal, Normal thought process present and cooperative THOUGHT PROCESS: Normal thought process present Skin: COMMON NORMALS: no rashes or lesions noted and no wounds GENERAL SKIN EXAM: no rashes or lesions noted Course Vital Signs: Vital signs: Vital Signs Temperature 98.3 F 10/09/25 10:43 Pulse Rate 81 10/09/25 10:43 Respiratory Rate 16 10/09/25 10:43 Blood Pressure 141/89 10/09/25 10:43 Pulse Oximetry 100 10/09/25 10:43 Oxygen Delivery Me thod Room Air 10/09/25 10:43 MDM - Psych Medical Decision Making Patient presents here with chronic schizophrenia. Patient here is at his baseline does not appear acutely psychotic. Does not appear to be a threat to himself or others denies SI or HI. I did speak to psychiatrist Dr. Baker who is taking care of patient in the past. He agrees that he does not believe patient needs to be admitted at this time will discharge him over to the crisis stabilization unit. No radiology studies performed this visit Discharge Plan Discharge Patient Disposition: Home Clinical Impression: Chronic schizophrenia Condition: Stable Prescriptions: No Action cyclobenzaprine 10 mg tablet 10 mg PO Q8H PRN (Reason: muscle spasm) Qty: 20 0RF azithromycin [Zithromax Z-Dagoberto] 250 mg tablet See Rx Instructions .ROUTE .COMPLEX Qty: 6 0RF Rx Instructions: For 250 mg dose pack: take 500 mg today (day 1), then 250 mg for 4 days (days 2-5) diclofenac sodium 50 mg tablet,delayed release (DR/EC) 50 mg PO BID PRN (Reason: pain) Qty: 14 0RF Discharge Orders: Discharge ED (Routine); Ordered 10/09/25 Ordered By: Donna Morales Discharge Diet: Advance as tolerated Discharge Activity: Resume usual activity Patient Instructions: Schizophrenia (ED) Print Language: Faroese Coding Level of Care Code ED Lead Business Systems Analyst for Luzma Allan
--- OUTSIDE RECORDS SUMMARY | 2025-10-09 13:15 | XMS_ITS | Clinical Summary ---
Author Organization [facility] Address [address] 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 Gender Identity Not on file Sexual Orientation Not on file Last Filed Vital Signs Vital Sign Reading Time Taken Comments Blood Pressure 117/75 01/11/2023 3:30 PM SYSTEMS ENGINEER Pulse 67 01/11/2023 3:30 PM SYSTEMS ENGINEER Temperature 36.3 C (97.4 F) 01/11/2023 1:43 PM SYSTEMS ENGINEER Respiratory Rate 18 01/11/2023 3:30 PM SYSTEMS ENGINEER Oxygen Saturation 95% 01/11/2023 3:30 PM SYSTEMS ENGINEER Inhaled Oxygen Concentration - - Weight 167.8 kg (370 lb) 01/11/2023 1:43 PM SYSTEMS ENGINEER Height 188 cm (6' 2 ) 01/11/2023 1:43 PM SYSTEMS ENGINEER Body Mass Index 47.51 01/11/2023 1:43 PM SYSTEMS ENGINEER Plan of Treatment Health Maintenance Due Date Last Done Comments HEPATITIS B VACCINES (1 of 3 - 19+ 3-dose series) 2013 HPV VACCINES (1 - 3-dose SCDM series) 2021 INFLUENZA VACCINE (#1) 2025 DTAP/TDAP/TD VACCINES (3 - Td or Tdap) 06/08/2030, 04/07/2010 Insurance [place] Advance Directives For more information, please contact: [phone] Documents on File Type Date Recorded Patient Blanket Folder Expl anation Advance Directive POA 01/11/2023 2:25 PM Letters of Guardians hip of Incapacitated Person
== END 2025-10-09 10:57 | disposition home or self-care (01) ==
PROVIDERS: Emergency Provider Emergency Medicine
DX: F20.9 Schizophrenia, unspecified (principal); Z72.0 Tobacco use
CPT/HCPCS: 99283

== ENCOUNTER 2025-11-06 16:47 | Emergency (ER) | payer MEDICARE, SELFPAY ==
[2025-11-06 16:42] VITALS: BP 133/98; PULSE 89; RESP 16; O2SAT 97
--- NOTE | 2025-11-06 16:50 | ECG_ITS ---
[facility] Test Date: 2025-11-06 Pat Name: Janes Powell Department: Room: Gender: Male Hand Inserter Operator: : 1995 Requested By: Odilia Johnson Order Number: [id number] Reading MD: Measurements Intervals [place] Rate: 70 P: 1 ND: 176 QRS: 2 QRSD: 95 T: 12 QT: 389 QTc: 422 Interpretive Statements SINUS RHYTHM [id number] [id number]
--- OUTSIDE RECORDS SUMMARY | 2025-11-06 16:54 | XMS_ITS | Clinical Summary ---
Author Organization [facility] Address [address] Johnson: [place] [address] Care Team Providers Care Crane Manager Name Role Phone Unavailable Primary Care Provider [...] on file Legal Sex Male 7:12 AM MATERIALS INSPECTOR Gender Identity Not on file Sexual Orientation Not on file Last Filed Vital Signs Vital Sign Reading Time Taken Comments Blood Pressure 117/75 01/11/2023 3:30 PM MATERIALS INSPECTOR Pulse 67 01/11/2023 3:30 PM MATERIALS INSPECTOR Temperature 36.3 C (97.4 F) 01/11/2023 1:43 PM MATERIALS INSPECTOR Respiratory Rate 18 01/11/2023 3:30 PM MATERIALS INSPECTOR Oxygen Saturation 95% 01/11/2023 3:30 PM MATERIALS INSPECTOR Inhaled Oxygen Concentration - - Weight 167.8 kg (370 lb) 01/11/2023 1:43 PM MATERIALS INSPECTOR Height 188 cm (6' 2 ) 01/11/2023 1:43 PM MATERIALS INSPECTOR Body Mass Index 47.51 01/11/2023 1:43 PM MATERIALS INSPECTOR Plan of Treatment Health Maintenance Due Date Last Done Comments HEPATITIS B VACCINES (1 of 3 - 19+ 3-dose series) 2013 INFLUENZA VACCINE (#1) 2025 DTAP/TDAP/TD VACCINES (3 - Td or Tdap) 06/08/2030, 04/07/2010 HPV VACCINES (No Doses Required) Completed Insurance [place] Advance Directives For more information, please contact: [phone] Documents on File Type Date Recorded Patient Information Systems Coordinator Expl anation Advance Directive POA 01/11/2023 2:25 PM Letters of Guardians hip of Incapacitated Person
[2025-11-06 16:59] VITALS: BP 133/98; PULSE 89; RESP 16; O2SAT 97
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
[2025-11-06 17:46] LABS: Hematocrit 41.2 % (37-53); Hemoglobin 13.20 g/dL (11.27-16.99); Mean Corpuscular HGB Conc 32.0 g/dL (30-55); Mean Corpuscular Hemoglobin 27.9 pg (27-33); Mean Corpuscular Volume 87.1 fl (82-101); Nucleated Red Blood Cells % 0 %; Platelet Count 292 10^3/cmm (157-399); Red Blood Count 4.73 10^6/uL (3.85-5.65); White Blood Count 11.83 10^3/uL (3.29-11.43)
--- NOTE | 2025-11-06 17:48 | PC.NURSE ---
GEODON NOT GIVEN DUE TO PATIENT CALM AND COOPERATIVE. ENTIRE BOTTLE WASTED WITH BENJAMIN VALVERDE.
[2025-11-06 18:02] LABS: Alanine Aminotransferase 13 U/L (0-41); Albumin Level 3.6 g/dL (3.5-5.2); Alkaline Phosphatase 92 U/L (40-130); Anion Gap 13.9 (5-19); Aspartate Amino Transferase 15 U/L (0-40); Blood Urea Nitrogen 15 mg/dL (6-20); Calcium 8.9 mg/dL (8.5-10.5); Carbon Dioxide 26 mmol/L (22-29); Chloride 103 mmol/L (98-107); Globulin 3.0 g/dL (1.3-4.6); Glucose 83 mg/dL (65-115); Osmolality Calculated 288 mOsm/kg (285-295); Potassium 3.9 mmol/L (3.5-5.1); Sodium 139 mmol/L (136-145); Total Protein 6.6 g/dL (6.6-8.7)
--- NOTE | 2025-11-06 18:03 | PC.NURSE ---
96 hr rights reviewed with pt @[id number] with assistance of [facility] hospital admissions officer X2 and [facility] X2. Pt verbalized understanding to hold. Copy of rights placed with pt's belongings. Labs drawn. No further needs at this time.
[2025-11-06 18:06] LABS: Acetaminophen < 5.0 ug/mL (10-30); Alcohol Level < 10 mg/dL (0-10); Salicylate < 0.3 mg/dL (3-10)
[2025-11-06 18:40] LABS: Glucose Urine UA Negative (Normal); Nitrate Urine Negative (Negative); Specific Gravity, Urine 1.010 (1.005-1.030)
[2025-11-06 18:45] LABS: Add Urine Microscopic? YES
[2025-11-06 18:47] LABS: PCP Screen Urine Negative (Negative)
[2025-11-06 20:20] LABS: Respiratory Syncytial Virus Ce NEGATIVE (Negative); SARS-CoV-2 PCR NEGATIVE (Negative)
[2025-11-06] MEDS: orphenadrine 30 mg/mL Inj 2 mL 60 MG IM (21:33)
[2025-11-07 04:49] VITALS: BP 125/70; PULSE 87; O2SAT 99
[2025-11-07 04:51] VITALS: BP 125/70; PULSE 87; RESP 16; O2SAT 99
[2025-11-07 09:26] VITALS: BP 115/62; PULSE 78; RESP 16; O2SAT 98
== END 2025-11-07 09:36 ==
PROVIDERS: Emergency Provider Physician Assistant
DX: R45.851 Suicidal ideations (principal); Z11.52 Encounter for screening for COVID-19; Z72.0 Tobacco use; T50.901A Poisoning by unspecified drugs, medicaments and biological substances, accidental (unintentional), initial encounter; X58.XXXA Exposure to other specified factors, initial encounter
CPT/HCPCS: 80053; 80306; 80307; 81001; 85025; 87637; 93005; 96372; 99285; J1885; J2360; J9999